=== PATIENT | female | born 1970 | race Caucasian/White ===

== ENCOUNTER 2016-11-26 09:24 | Emergency (ER) | payer OTHER ==
[~2016-11-26] VITALS: Ht 167.6 cm; Wt 120.0 kg
[~2016-11-26 09:24] MED LIST: FLUO40CA8 PO; HYDC25 PO; LISI10TA PO; RQP25 PO
[2016-11-26 09:30] VITALS: Ht 167.6 cm; Wt 120.0 kg
[2016-11-26] MEDS ORDERED: HYDR25TA4 PO (09:44)
[2016-11-26] MEDS ORDERED: MELO7.5T5 PO (09:46)
[2016-11-26] MEDS ORDERED: KETOROLAC TROMETHAMINE 60 MG/2 ML VIAL IM STA (09:58)
[2016-11-26] MEDS ORDERED: ONDANSETRON 4MG OD TAB PO STA (09:58)
[2016-11-26] MEDS ORDERED: HYDROmorphone INJ 2 MG/ML SYR/VIAL IM STA (09:58)
[2016-11-26] MEDS ORDERED: DEXAMETHASONE SOD INJ 10 MG/ML VIAL IM STA (09:58)
--- NOTE | 2016-11-26 10:04 | EMERGENCY ROOM VISIT NOTE ---
History Report prepared by Dong: Sonu Marsh Under the Supervision of: Dr. Kingston Mullen M.D. First contact with patient: 09:54 Chief Complaint: BACK PAIN Stated Complaint: BACK AND HIP History of Present Illness The patient is a 46 year old female who presents to the Emergency Room with complaints of worsening constant lower right back pain for the past three days. The patient states that she has a history of sciatica, and the pain is running down her right leg. The patient states that she takes 3000mg of Tylenol per day. Source of History: patient Onset: three days ago Position: back (lower) Timing: constant, worsening Note: Associated symptoms: Right leg pain Review of Systems See HPI for pertinent positives & negatives. A total of 10 systems reviewed and were otherwise negative. Past Medical & Surgical Medical Problems: (1) Abscess of left axilla (2) Abscess of left axilla (3) Acute exacerbation of chronic low back pain (4) Arthritis (5) Arthritis (6) Arthritis (7) Asthma (8) Back pain (9) Back pain (10) Cellulitis of right leg (11) COPD (chronic obstructive pulmonary disease) (12) Hip pain (13) Hip pain (14) Hip pain, bilateral (15) Hypertension Nos (16) Knee pain (17) Morbid Obesity (18) Right leg DVT (19) Wound check, abscess Surgical Problems: (1) Left Ankle Surgery Family History Cancer Diabetes mellitus Gallbladder disease Heart disease Hypertension Kidney disease Lung disease Social History Smoking Status: Never Smoker Alcohol Use: none Drug Use: none Marital Status: single Housing Status: lives with family Occupation Status: employed Current/Historical Medications Scheduled Fluoxetine Hcl (Prozac), 40 MG PO DAILY Hydrochlorothiazide (Hctz), 25 MG PO DAILY Lisinopril (Prinivil), 10 MG PO DAILY Meloxicam (Mobic), 7.5 MG PO DAILY Prednisone (Prednisone Tab), 0 PO DAILY Scheduled PRN Oxycodone/Acetaminophen 5MG/325MG (Percocet 5MG/325MG), 1-2 TAB PO Q4H PRN for Pain Ropinirole HCl (Ropinirole HCl), 0.5 MG PO HS PRN for PRN Allergies Uncoded Allergies: ADHESIVE (Allergy, Intermediate, skin peels off, 11/26/16) Physical Exam Vital Signs Date Time Temp Pulse Resp B/P Pulse Ox O2 Delivery O2 Flow Rate FiO2 11/26/16 11:46 62 20 143/52 98 Room Air 11/26/16 11:45 36.5 56 19 121/67 98 11/26/16 09:30 36.5 56 19 121/67 98 Room Air Physical Exam GENERAL: Patient is a healthy-appearing well-nourished HEAD: Normocephalic atraumatic EYES: Ocular movements intact pupils equal and react to light OROPHARYNX mucous membranes are moist no exudates present no erythema or edema present NECK: Supple no nuchal rigidity CHEST: Good equal expansion LUNGS: Clear and equal to auscultation CARDIAC: Normal S1 and S2 ABDOMEN: Soft nontender no guarding BACK: Tenderness to midline of the spine at the L4-L5 area. No CVA tenderness EXTREMITIES: No pain upon palpation normal muscle strength in all groups no clubbing cyanosis or edema NEURO: Able to walk on tip toes and heels. No evidence of saddle anesthesia. No loss of bowel or bladder control. Patient is following commands is answering questions appropriately. Alert and oriented x3 Cranial Nerves 2-12 grossly intact Medical Decision & Procedures Medications Administered Medications (Trade) Dose Ordered Sig/Ross Route Start Time Stop Time Status Last Admin Dose Admin Ketorolac Tromethamine (Toradol Inj) 60 mg NOW STAT IM 11/26/16 09:58 11/26/16 10:00 DC 11/26/16 10:29 60 MG Dexamethasone Sodium Phosphate (Decadron Inj) 10 mg NOW STAT IM 11/26/16 09:58 11/26/16 10:00 DC 11/26/16 10:30 10 MG Hydromorphone HCl (Dilaudid Inj) 2 mg NOW STAT IM 11/26/16 09:58 11/26/16 10:00 DC 11/26/16 10:29 2 MG Ondansetron HCl (Zofran Odt) 4 mg NOW STAT PO 11/26/16 09:58 11/26/16 10:00 DC 11/26/16 10:28 4 MG ED Course 0954: Past medical records reviewed. The patient was evaluated in room B3. A complete history and physical examination was performed. 0958: Zofran Odt 4mg PO, Dilaudid Inj 2mg IM, Decadron Inj 10mg IM, Toradol Inj 60mg IM 1113: Upon reexamination the patient is feeling better. I discussed results and treatment plan with the patient. She verbalizes agreement and understanding. The patient is ready for discharge. Medical Decision Differential diagnosis: Etiologies such as musculoskeletal, disc herniation, fracture, aortic disease, metastatic disease, cord compression, discitis, infection, renal colic, gastrointestinal, acute exacerbation of chronic back pain, sciatica, cauda equina, as well as others were entertained. This is a 46-year-old female who presents emergency department complaining of inflammation to her back. She presents during a period of high volume high acuity. When I tried to question the patient further about her condition she became agitated and stated that this is similar to her attacks in the past and that she did not need imaging. She asked me to look up her past medical history and is asking for a pain shot. For this reason she was given Decadron, Toradol, Dilaudid. Repeat examination revealed improvement patient's symptoms. I'll place the patient on prednisone and have her follow-up with orthopedic spine. Patient was in agreement with the treatment plan. Impression Primary Impression: Back pain with sciatica Scribe Attestation The scribe's documentation has been prepared under my direction and personally reviewed by me in its entirety. I confirm that the note above accurately reflects all work, treatment, procedures, and medical decision making performed by me. Departure Information Dispostion Home / Self-Care Prescriptions Prednisone (Prednisone Tab) 20 Mg Tab 0 PO DAILY, #7 TAB 2 TABS DAILY FOR 2 DAYS, THEN 1 TAB DAILY FOR 2 DAYS, THEN 1/2 TAB DAILY FOR 2 DAYS. Prov: Kingston Mullen MD 11/26/16 Oxycodone/Acetaminophen 5MG/325MG (PERCOCET 5MG/325MG) Tab 1-2 TAB PO Q4H Y for Pain, #14 TAB Prov: Kingston Mullen MD 11/26/16 Referrals No Doctor, Assigned (PCP) Forms HOME CARE DOCUMENTATION FORM, IMPORTANT VISIT INFORMATION, School Instructions, Work Instructions Patient Instructions ED Back Care Tips, ED Sciatica, Exercises Back Lower Back Stretch, Low Back Pain Self Care, My [facility] Additional Instructions Follow up with DR Us's office You received narcotic or benzodiazepene medication while in the emergency room today. Do not drive, operate heavy machinery, or drink alcohol under the influence of this medication. Take 600 mg Ibuprofen every 6 hours Take Percocet for breakthrough pain You have been examined and treated today on an emergency basis only. This is not a substitute for, or an effort to provide, complete comprehensive medical care. It is impossible to recognize and treat all injuries or illnesses in a single emergency department visit. It is therefore important that you follow up closely with Dr Collins. Call as soon as possible for an appointment. Thank you for your time and consideration. I look forward to speaking with you again soon. Please don't hesitate to call us if you have any questions.
[2016-11-26] MEDS ORDERED: PRED20TA2 PO (11:14)
[2016-11-26] MEDS ORDERED: OXYC-57 PO (11:14)
[2016-11-26 11:45] VITALS: TEMP 36.5
[2016-11-26 11:46] VITALS: BP 143/52; PULSE 62; O2SAT 98
== END 2016-11-26 11:46 | disposition home or self-care (01) ==
LOC: C.EDB 09:26
DX: M54.41 Lumbago with sciatica, right side (principal); I10 Essential (primary) hypertension; J44.9 Chronic obstructive pulmonary disease, unspecified; M19.90 Unspecified osteoarthritis, unspecified site; J45.909 Unspecified asthma, uncomplicated; Z86.718 Personal history of other venous thrombosis and embolism; Z86.19 Personal history of other infectious and parasitic diseases; Z98.890 Other specified postprocedural states; Z79.899 Other long term (current) drug therapy; Z91.09 Other allergy status, other than to drugs and biological substances; Z80.9 Family history of malignant neoplasm, unspecified; Z83.3 Family history of diabetes mellitus; Z83.79 Family history of other diseases of the digestive system; Z82.49 Family history of ischemic heart disease and other diseases of the circulatory system; Z84.1 Family history of disorders of kidney and ureter

== ENCOUNTER → 2017-01-26 | Outpatient (CLI) | payer OTHER ==
[~2017-01-26] MED LIST changes: +ACET325C PO; +BUPRTAB PO; +GABA-113 PO; -HYDC25 PO; +HYDR25TA4 PO; +IBUP-1050 PO; +KETO10TA PO; +MELO7.5T5 PO; +METH4PAK PO; +OXYC-57 PO; +PARO1TAB29 PO; +POTA20TA16 PO; +PRED20TA2 PO
[2017-01-26 14:24] LABS: BLOOD UREA NITROGEN 17 mg/dl (7-18); BUN/CREATININE RATIO 23.3 (10-20); CARBON DIOXIDE 25 mmol/L (21-32); CHLORIDE 106 mmol/L (98-107); CREATININE 0.73 mg/dl (0.60-1.20); GLUCOSE 83 mg/dl (70-99); POTASSIUM 3.9 mmol/L (3.5-5.1); SODIUM 141 mmol/L (136-145)
== END | disposition home or self-care (01) ==
LOC: C.LABBFT 08:31
PROVIDERS: ATTEND Physician Assistant Medical
DX: I10 Essential (primary) hypertension (principal)

== ENCOUNTER 2017-03-17 18:34 | Emergency (ER) | payer OTHER ==
[~2017-03-17] VITALS: Ht 167.6 cm; Wt 133.9 kg
[~2017-03-17 18:34] MED LIST changes: -ACET325C PO; -BUPRTAB PO; -GABA-113 PO; -IBUP-1050 PO; -KETO10TA PO; -METH4PAK PO; -PARO1TAB29 PO; -POTA20TA16 PO
[2017-03-17 18:52] VITALS: TEMP 36.7; Ht 167.6 cm; Wt 133.9 kg
--- NOTE | 2017-03-17 19:37 | EMERGENCY ROOM VISIT NOTE ---
History Report prepared by Dong: Jenise Massey Under the Supervision of: Dr. David Guerrier M.D. First contact with patient: 19:23 Chief Complaint: PAIN (GENERALIZED) Stated Complaint: HIP,KNEE,SHOULDER PAIN History of Present Illness The patient is a 46 year old female who presents to the Emergency Room with complaints of intermittent chest pain beginning 2 days ago. She reports the pain as being sharp and only lasting a couple of minutes. She also has a chief complaint of left hip pain beginning 5 days ago. The pain also radiates down her left posterior leg. She denies back pain and urinary symptoms. She has no history of GERD and is not diabetic. Source of History: patient Onset: 2 days ago Position: chest Quality: sharp Timing: intermittent Associated Symptoms: No back pain, No urinary symptoms Note: additional symptom: left hip pain Review of Systems See HPI for pertinent positives & negatives. A total of 10 systems reviewed and were otherwise negative. Past Medical & Surgical Medical Problems: (1) Abscess of left axilla (2) Abscess of left axilla (3) Acute exacerbation of chronic low back pain (4) Arthritis (5) Arthritis (6) Arthritis (7) Asthma (8) Back pain (9) Back pain (10) Cellulitis of right leg (11) COPD (chronic obstructive pulmonary disease) (12) Hip pain (13) Hip pain (14) Hip pain, bilateral (15) Hypertension (16) Hypertension Nos (17) Knee pain (18) Morbid Obesity (19) Right leg DVT (20) Wound check, abscess Surgical Problems: (1) Left Ankle Surgery Family History Cancer Diabetes mellitus Gallbladder disease Heart disease Hypertension Kidney disease Lung disease Social History Smoking Status: Current Every Day Smoker Alcohol Use: none Drug Use: none Marital Status: single Housing Status: lives with family Occupation Status: employed Current/Historical Medications Scheduled Bupropion Hcl (Wellbutrin Xl), Unknown Dose PO QAM Gabapentin (Neurontin), 300 MG PO TID Hydrochlorothiazide (Hctz), 25 MG PO DAILY Methylprednisolone (Medrol Dosepak), 1 PKT PO UD Paroxetine (Paxil), 1 TAB PO DAILY Potassium Ext Rel (Klor-Con), 20 MEQ PO DAILY Scheduled PRN Acetaminophen (Tylenol), 650 MG PO Q4H PRN for Pain Ibuprofen (Advil), 200-600 MG PO Q4H PRN for Pain Allergies Coded Allergies: Adhesives (Unverified Adverse Reaction, Intermediate, SKIN PEELS OFF, ) Uncoded Allergies: ADHESIVE (Allergy, Intermediate, skin peels off, 11/26/16) Physical Exam Vital Signs Date Time Temp Pulse Resp B/P (MAP) Pulse Ox O2 Delivery O2 Flow Rate FiO2 03/17/17 21:25 74 20 158/88 95 Room Air 03/17/17 19:23 74 03/17/17 18:52 36.7 81 17 137/81 97 Room Air Physical Exam GENERAL: Patient is well appearing and in minimal distress. HEENT: No acute trauma, normocephalic atraumatic, mucous membranes moist, no nasal congestion, no scleral icterus. NECK: No stridor, no adenopathy, no meningismus, trachea is midline. LUNGS: No dyspnea. Clear to auscultation and equal bilaterally. No wheeze, no rhonchi. HEART: Regular rate and rhythm. No murmurs, rubs, gallops appreciated. ABDOMEN: Soft, nontender, bowel sounds positive, no masses appreciated, no peritonitis. BACK: No midline tenderness, no CVA tenderness EXTREMITIES: Normal motion all extremities, no cyanosis, no edema. NEUROLOGIC: Alert and oriented, no acute motor or sensory deficits, no focal weakness, cranial nerves grossly intact. SKIN: No rash, no jaundice, no diaphoresis. Medical Decision & Procedures ER Provider Diagnostic Interpretation: X ray results are stated below per my interpretation and the radiologist's interpretation. SINGLE VIEW CHEST CLINICAL HISTORY: Atypical chest pain. FINDINGS: An AP, portable, upright chest radiograph is compared to study dated 08/03/2013. The examination is degraded by portable technique, large body habitus, and patient rotation. The cardiomediastinal silhouette is unremarkable. There is mild bibasilar atelectasis. The lungs and pleural spaces are otherwise clear. No pneumothorax is seen. The skeletal structures appear osteopenic. The bony thorax is grossly intact. IMPRESSION: No active disease in the chest. Electronically signed by: Jerrell Giles M.D. 03/17/2017 7:54 PM Dictated Date/Time: 03/17/2017 7:53 PM SINGLE VIEW PELVIS; 2 VIEWS LEFT HIP CLINICAL HISTORY: Left hip pain of 5 days' duration. No history of trauma. FINDINGS: An AP view of the pelvis with AP and frog-leg views of the left hip are compared to study dated 02/24/2016. The skeletal structures are osteopenic. No fracture is seen in the hips or bony pelvis. Minimal arthritic change is present in the hips. There is no significant joint space narrowing. Enthesophytes arise from the anterior superior iliac spine bilaterally and the greater trochanters of the proximal femora. Minimal sclerotic change is seen in the sacroiliac joints. Lumbosacral spondylosis is partially imaged. The overlying soft tissues are normal in appearance. There is a nonobstructed abdominal gas pattern. IMPRESSION: 1. No acute bony abnormality is identified in the hips or pelvis. 2. Osteopenia and minimal degenerative change as above. There has been no significant change from 02/24/2016. Electronically signed by: Jerrell Giles M.D. 03/17/2017 9:04 PM Dictated Date/Time: 03/17/2017 9:02 PM Laboratory Results 03/17/17 20:00 Red Blood Count 4.74, Mean Corpuscular Volume 84.8, Mean Corpuscular Hemoglobin 26.6, Mean Corpuscular Hemoglobin Concent 31.3, Mean Platelet Volume 9.7, Neutrophils (%) (Auto) 66.9, Lymphocytes (%) (Auto) 22.3, Monocytes (%) (Auto) 7.6, Eosinophils (%) (Auto) 2.3, Basophils (%) (Auto) 0.4, Neutrophils # (Auto) 5.49, Lymphocytes # (Auto) 1.83, Monocytes # (Auto) 0.62, Eosinophils # (Auto) 0.19, Basophils # (Auto) 0.03 03/17/17 20:00 Test 03/17/17 20:00 White Blood Count 8.20 K/uL (4.8-10.8) Red Blood Count 4.74 M/uL (4.2-5.4) Hemoglobin 12.6 g/dL (12.0-16.0) Hematocrit 40.2 % (37-47) Mean Corpuscular Volume 84.8 fL (80-100) Mean Corpuscular Hemoglobin 26.6 pg (25-34) Mean Corpuscular Hemoglobin Concent 31.3 g/dl (32-36) Platelet Count 384 K/uL (130-400) Mean Platelet Volume 9.7 fL (7.4-10.4) Neutrophils (%) (Auto) 66.9 % Lymphocytes (%) (Auto) 22.3 % Monocytes (%) (Auto) 7.6 % Eosinophils (%) (Auto) 2.3 % Basophils (%) (Auto) 0.4 % Neutrophils # (Auto) 5.49 K/uL (1.4-6.5) Lymphocytes # (Auto) 1.83 K/uL (1.2-3.4) Monocytes # (Auto) 0.62 K/uL (0.11-0.59) Eosinophils # (Auto) 0.19 K/uL (0-0.5) Basophils # (Auto) 0.03 K/uL (0-0.2) RDW Standard Deviation 47.7 fL (36.4-46.3) RDW Coefficient of Variation 15.4 % (11.5-14.5) Immature Granulocyte % (Auto) 0.5 % Immature Granulocyte # (Auto) 0.04 K/uL (0.00-0.02) Anion Gap 8.0 mmol/L (3-11) Est Creatinine Clear Calc Drug Dose 97.8 ml/min Estimated GFR () 78.1 Estimated GFR (Non- 67.4 BUN/Creatinine Ratio 22.9 (10-20) Calcium Level 8.7 mg/dl (8.5-10.1) Troponin I < 0.015 ng/ml (0-0.045) Laboratory results as reviewed by me. Medications Administered Medications (Trade) Dose Ordered Sig/Ross Route Start Time Stop Time Status Last Admin Dose Admin Prednisone (PredniSONE TAB) 40 mg NOW STAT PO 03/17/17 21:14 03/17/17 21:15 DC 03/17/17 21:34 40 MG Potassium Chloride (Klor-Con Tab) 40 meq NOW STAT PO 03/17/17 21:29 03/17/17 21:30 DC 03/17/17 21:29 40 MEQ ECG Indication: chest pain Rate (beats per minute): 72 Rhythm: normal sinus Findings: no acute ischemic change, no ectopy ED Course 1924: The patient was evaluated in room A3. A complete history and physical exam was performed. 2108: I reevaluated the patient and she feels fine. I discussed the risks of taking too much Ibuprofen especially combined with a steroid. She is agreeable to trying oral steroids and will follow closely with her doctor about chest discomfort and persistent hip pain. 2113: Ordered Prednisone 40 mg PO. 2138: Ordered Potassium Chloride 40 meq PO. Reevaluated the patient. Discussed results and discharge instructions: she verbalized understanding and agreement. The patient is ready for discharge. Medical Decision Pleasant 46 yr old female with left hip pain for last few days. Taking far too much ibuprofen and I have made it clear she is accidentally overdosing on this and could cause stomach bleeding or renal failure. Hip without rash swelling nor other acute findings. Suspect this is sciatic in nature though may be primary arthritic in nature. No evidence of vascular cause. She is stable. Will try some steroids and stress stop/heavily cut back ibuprofen. Discussed GERD issues/risks with all of this. Did note some periodic atypical chest pain over last 2 days. EKG and Trop are negative for ACS. May be GERD already and discussed OTC Meds. We reviewed limitations to cardiac eval in ED and that if worsening symptoms or other concerns RTED immediately for further evaluation. History of leg swelling and notes just started taking lasix again, which would explain hypokalemia. Will plan on Klor-Con. Patient aware of HTN. Stressed need to follow up with PCP about all of these issues as soon as possible. Impression Primary Impression: Left hip pain Additional Impressions: Intermittent chest pain Hypokalemia Scribe Attestation The scribe's documentation has been prepared under my direction and personally reviewed by me in its entirety. I confirm that the note above accurately reflects all work, treatment, procedures, and medical decision making performed by me. Departure Information Dispostion Home / Self-Care Prescriptions Potassium Ext Rel (Klor-Con) 20 Meq Tabcr 20 MEQ PO DAILY for 30 Days, #30 TAB Prov: David Guerrier M.D. 03/17/17 Methylprednisolone (MEDROL DOSEPAK) 4 Mg Lee 1 PKT PO UD for 6 Days, #1 PKT Prov: David Guerrier M.D. 03/17/17 Referrals No Doctor, Assigned (PCP) Patient Instructions ED Sciatica, My [facility] Additional Instructions It is very important that you follow up with your PCP as soon as possible to discuss your symptoms. Return immediately if worsening chest pain, difficulty breathing, passing out or other concerns. Your potassium is low and will need to be rechecked in 1 week. Problem Qualifiers
--- NOTE | 2017-03-17 19:55 | DIAGNOSTIC IMAGING REPORT ---
SINGLE VIEW CHEST CLINICAL HISTORY: Atypical chest pain. FINDINGS: An AP, portable, upright chest radiograph is compared to study dated 08/03/2013. The examination is degraded by portable technique, large body habitus, and patient rotation. The cardiomediastinal silhouette is unremarkable. There is mild bibasilar atelectasis. The lungs and pleural spaces are otherwise clear. No pneumothorax is seen. The skeletal structures appear osteopenic. The bony thorax is grossly intact. IMPRESSION: No active disease in the chest. Electronically signed by: Jerrell Giles M.D. 03/17/2017 7:54 PM Dictated Date/Time: 03/17/2017 7:53 PM
[2017-03-17 20:14] LABS: BASO % 0.4 %; BASO ABS # 0.03 K/uL (0-0.2); COMPLETE YES; EOS % 2.3 %; HEMATOCRIT 40.2 % (37-47); IG% 0.5 %; LYMPH % 22.3 %; LYMPH ABS # 1.83 K/uL (1.2-3.4); MEAN CELL VOLUME 84.8 fL (80-100); MEAN CORPUSCULAR HEMOGLOBIN 26.6 pg (25-34); MEAN CORPUSCULAR HGB CONC 31.3 g/dl (32-36); MEAN PLATELET VOLUME 9.7 fL (7.4-10.4); MONO % 7.6 %; NEUT % 66.9 %; PLATELET COUNT 384 K/uL (130-400); RED BLOOD COUNT 4.74 M/uL (4.2-5.4)
[2017-03-17] MEDS ORDERED: PARO1TAB29 PO (20:24)
[2017-03-17] MEDS ORDERED: GABA-113 PO (20:24)
[2017-03-17] MEDS ORDERED: BUPRTAB PO (20:24)
[2017-03-17] MEDS ORDERED: IBUP-1050 PO (20:27)
[2017-03-17] MEDS ORDERED: ACET325C PO (20:27)
[2017-03-17 20:32] LABS: BLOOD UREA NITROGEN 23 mg/dl (7-18); BUN/CREATININE RATIO 22.9 (10-20); CALCIUM 8.7 mg/dl (8.5-10.1); CARBON DIOXIDE 33 mmol/L (21-32); CHLORIDE 100 mmol/L (98-107); CREATININE 0.99 mg/dl (0.60-1.20); GLUCOSE 88 mg/dl (70-99); POTASSIUM 2.6 mmol/L (3.5-5.1); SODIUM 141 mmol/L (136-145)
--- NOTE | 2017-03-17 21:05 | DIAGNOSTIC IMAGING REPORT ---
SINGLE VIEW PELVIS; 2 VIEWS LEFT HIP CLINICAL HISTORY: Left hip pain of 5 days' duration. No history of trauma. FINDINGS: An AP view of the pelvis with AP and frog-leg views of the left hip are compared to study dated 02/24/2016. The skeletal structures are osteopenic. No fracture is seen in the hips or bony pelvis. Minimal arthritic change is present in the hips. There is no significant joint space narrowing. Enthesophytes arise from the anterior superior iliac spine bilaterally and the greater trochanters of the proximal femora. Minimal sclerotic change is seen in the sacroiliac joints. Lumbosacral spondylosis is partially imaged. The overlying soft tissues are normal in appearance. There is a nonobstructed abdominal gas pattern. IMPRESSION: 1. No acute bony abnormality is identified in the hips or pelvis. 2. Osteopenia and minimal degenerative change as above. There has been no significant change from 02/24/2016. Electronically signed by: Jererll Giles M.D. 03/17/2017 9:04 PM Dictated Date/Time: 03/17/2017 9:02 PM
[2017-03-17 21:25] VITALS: BP 158/88; PULSE 74; O2SAT 95
[2017-03-17] MEDS ORDERED: POTA20TA16 PO (21:28)
[2017-03-17] MEDS ORDERED: METH4PAK PO (21:28)
[2017-03-17] MEDS ORDERED: POTASSIUM CHLORIDE 20 MEQ TABCR PO STA (21:29)
== END 2017-03-17 22:00 | disposition home or self-care (01) ==
LOC: C.EDB 18:36 → C.EDA 22:00
DX: M25.552 Pain in left hip (principal); R07.9 Chest pain, unspecified; E87.6 Hypokalemia; M19.90 Unspecified osteoarthritis, unspecified site; J45.909 Unspecified asthma, uncomplicated; J44.9 Chronic obstructive pulmonary disease, unspecified; I10 Essential (primary) hypertension; E66.01 Morbid (severe) obesity due to excess calories; Z83.3 Family history of diabetes mellitus; Z82.49 Family history of ischemic heart disease and other diseases of the circulatory system; F17.200 Nicotine dependence, unspecified, uncomplicated

== ENCOUNTER 2017-03-30 18:29 | Emergency (ER) | payer OTHER ==
[~2017-03-30] VITALS: Ht 167.6 cm; Wt 146.0 kg
[~2017-03-30 18:29] MED LIST changes: +ACET325C PO; +BUPRTAB PO; -FLUO40CA8 PO; +GABA-113 PO; +IBUP-1050 PO; -LISI10TA PO; -MELO7.5T5 PO; -OXYC-57 PO; +PARO1TAB29 PO; +POTA20TA16 PO; -PRED20TA2 PO; -RQP25 PO
[2017-03-30 18:32] VITALS: TEMP 36.7; Ht 167.6 cm; Wt 146.0 kg
[2017-03-30] MEDS ORDERED: KETOROLAC TROMETHAMINE 60 MG/2 ML VIAL IM STA (18:49)
[2017-03-30] MEDS ORDERED: KETO10TA PO (19:00)
--- NOTE | 2017-03-30 19:02 | EMERGENCY ROOM VISIT NOTE ---
History Report prepared by Dong: Mike Altman Under the Supervision of: Melchor GuevaraO. First contact with patient: 18:42 Chief Complaint: HIP PAIN Stated Complaint: R HIP PAIN History of Present Illness The patient is a 46 year old female who presents to the Emergency Room with complaints of persistent right hip pain that started today. The pain is worse with movement. The patient has not taken anything for the pain. The patient denies any injury and is not sure what caused the pain. The patient has had hip pain before. She denies fevers or chills. She has not noticed any rashes. Source of History: patient Onset: today Position: other (right hip) Timing: other (persistent) Modifying Factors (Worsening): movement Associated Symptoms: No fevers, No chills, No rash Review of Systems See HPI for pertinent positives & negatives. A total of 10 systems reviewed and were otherwise negative. Past Medical & Surgical Medical Problems: (1) Abscess of left axilla (2) Abscess of left axilla (3) Acute exacerbation of chronic low back pain (4) Arthritis (5) Arthritis (6) Arthritis (7) Asthma (8) Back pain (9) Back pain (10) Cellulitis of right leg (11) COPD (chronic obstructive pulmonary disease) (12) Hip pain (13) Hip pain (14) Hip pain, bilateral (15) Hypertension (16) Hypertension Nos (17) Knee pain (18) Morbid Obesity (19) Right leg DVT (20) Wound check, abscess Surgical Problems: (1) Left Ankle Surgery Family History Cancer Diabetes mellitus Gallbladder disease Heart disease Hypertension Kidney disease Lung disease Social History Smoking Status: Current Every Day Smoker Alcohol Use: none Drug Use: none Marital Status: single Housing Status: lives with family Occupation Status: employed Current/Historical Medications Scheduled Bupropion Hcl (Wellbutrin Xl), Unknown Dose PO QAM Gabapentin (Neurontin), 300 MG PO TID Hydrochlorothiazide (Hctz), 25 MG PO DAILY Paroxetine (Paxil), 1 TAB PO DAILY Potassium Ext Rel (Klor-Con), 20 MEQ PO DAILY Scheduled PRN Acetaminophen (Tylenol), 650 MG PO Q4H PRN for Pain Ibuprofen (Advil), 200-600 MG PO Q4H PRN for Pain Allergies Coded Allergies: Adhesives (Unverified Adverse Reaction, Intermediate, SKIN PEELS OFF, ) Uncoded Allergies: ADHESIVE (Allergy, Intermediate, skin peels off, 11/26/16) Physical Exam Vital Signs Date Time Temp Pulse Resp B/P (MAP) Pulse Ox O2 Delivery O2 Flow Rate FiO2 03/30/17 18:32 36.7 76 18 154/86 98 Room Air Physical Exam CONSTITUTIONAL/VITAL SIGNS: Reviewed / noted above. GENERAL: Non-toxic in appearance. INTEGUMENTARY: Warm, dry, and [place]. HEAD: Normocephalic. EYES: without scleral icterus or trauma. ENT/OROPHARYNX: clear and moist. LYMPHADENOPATHY/NECK: Is supple without lymphadenopathy or meningismus. RESPIRATORY: Lungs clear and equal. CARDIOVASCULAR: Regular rate and rhythm. GI/ABDOMEN: Soft and nontender. No organomegaly or pulsatile mass. No rebound or guarding. Normal bowel sounds. EXTREMITIES: Warm and well perfused. BACK: No CVA tenderness. NEUROLOGICAL: Intact without focal deficits. PSYCHIATRIC: normal affect. MUSCULOSKELETAL: Normally developed with good muscle tone. Mild discomfort with movement of the right hip, normal distal pulses, no sensorimotor deficit, no edema. Medical Decision & Procedures ED Course 1844: Previous medical records were reviewed. The patient was evaluated in room B11b. A complete history and physical examination was performed. 1899: Discussed the discharge instructions with her. She verbalized understanding and agreement. The patient is ready for discharge. Medical Decision Differential diagnosis: Etiologies such as fracture, dislocation, neurovascular compromise, compartment syndrome, soft tissue injury, as well as others were entertained. Patient was found to have a slightly elevated blood pressure due to circumstances. I do not believe that the patient requires hypertension monitoring. Medication Reconciliation: I attest that I have personally reviewed the patient' s current medication list. This is a 46-year-old female who presents to the ED with a chief complaint of right hip pain. The patient states that her symptoms started today. She denies any injuries. She was seen here a couple weeks ago with left hip pain. At that time she had an x-ray of her pelvis did not show any abnormalities to this leg. The patient has some increased pain with movement. Her exam did not reveal any rashes or increased warmth or erythema to the area. Distally she is neurovascularly intact without edema or calf tenderness. The patient was felt to have a musculoskeletal pain. She is given Toradol IM here. She will be discharged on Ultram. Impression Primary Impression: Right hip pain Scribe Attestation The scribe's documentation has been prepared under my direction and personally reviewed by me in its entirety. I confirm that the note above accurately reflects all work, treatment, procedures, and medical decision making performed by me. Departure Information Dispostion Home / Self-Care Prescriptions Ketorolac (Toradol) 10 Mg Tab 10 MG PO QID Y for Pain for 5 Days, #20 TAB Prov: Kingston Lopez D.O. 03/30/17 Referrals Yves Collins M.D. (PCP) Patient Instructions My [facility] Additional Instructions Toradol as prescribed for pain. Follow-up with your doctor for further care and evaluation in 1-8 days if symptoms persist. Return to the emergency department for worsening or new symptoms or any concerns. You have been examined and treated today on an emergency basis only. This is not a substitute for, or an effort to provide, complete comprehensive medical care. It is impossible to recognize and treat all injuries or illnesses in a single emergency department visit. It is therefore important that you follow up closely with your doctor. Call as soon as possible for an appointment.
[2017-03-30 19:34] VITALS: BP 106/64; PULSE 66; O2SAT 97
== END 2017-03-30 19:36 | disposition home or self-care (01) ==
LOC: C.EDB 18:31
DX: M25.551 Pain in right hip (principal); M19.90 Unspecified osteoarthritis, unspecified site; J45.909 Unspecified asthma, uncomplicated; I10 Essential (primary) hypertension; Z86.718 Personal history of other venous thrombosis and embolism; E66.01 Morbid (severe) obesity due to excess calories; Z68.43 Body mass index [BMI] 50.0-59.9, adult; Z80.9 Family history of malignant neoplasm, unspecified; Z83.3 Family history of diabetes mellitus; Z82.49 Family history of ischemic heart disease and other diseases of the circulatory system; Z84.1 Family history of disorders of kidney and ureter; F17.210 Nicotine dependence, cigarettes, uncomplicated; Z79.899 Other long term (current) drug therapy

== ENCOUNTER → 2017-11-11 | Outpatient (CLI) | payer OTHER ==
[~2017-11-11] MED LIST changes: -POTA20TA16 PO
[2017-11-11 18:01] LABS: BASO % 0.5 %; BASO ABS # 0.05 K/uL (0-0.2); EOS % 2.1 %; HEMATOCRIT 38.9 % (37-47); HEMOGLOBIN 12.4 g/dL (12.0-16.0); IG# 0.03 K/uL (0.00-0.02); LYMPH % 17.6 %; LYMPH ABS # 1.64 K/uL (1.2-3.4); MEAN CELL VOLUME 83.8 fL (80-100); MEAN CORPUSCULAR HEMOGLOBIN 26.7 pg (25-34); MEAN CORPUSCULAR HGB CONC 31.9 g/dl (32-36); MEAN PLATELET VOLUME 10.4 fL (7.4-10.4); MONO % 6.9 %; MONO ABS # 0.64 K/uL (0.11-0.59); NEUT % 72.6 %; NEUT ABS # 6.77 K/uL (1.4-6.5); PLATELET COUNT 394 K/uL (130-400); RED CELL DISTRIBUTION WIDTH CV 17.9 % (11.5-14.5); RED CELL DISTRIBUTION WIDTH SD 54.9 fL (36.4-46.3); WHITE BLOOD COUNT 9.33 K/uL (4.8-10.8)
[2017-11-11 18:15] LABS: ALBUMIN 3.5 gm/dl (3.4-5.0); ALT/SGPT 19 U/L (12-78); AST/SGOT 14 U/L (15-37); BLOOD UREA NITROGEN 15 mg/dl (7-18); CALCIUM 9.5 mg/dl (8.5-10.1); CARBON DIOXIDE 30 mmol/L (21-32); CHOLESTEROL 156 mg/dl (0-200); CREATININE 0.89 mg/dl (0.60-1.20); GLUCOSE 77 mg/dl (70-99); POTASSIUM 3.9 mmol/L (3.5-5.1); SODIUM 135 mmol/L (136-145)
[2017-11-11 18:26] LABS: ALKALINE PHOSPHATASE 108 U/L (45-117); LDL CHOLESTEROL CALCULATED 85 mg/dl; TOTAL PROTEIN 7.3 gm/dl (6.4-8.2)
== END | disposition home or self-care (01) ==
LOC: C.LABBFT 15:21
PROVIDERS: ATTEND Nurse Practitioner
DX: I10 Essential (primary) hypertension (principal); R63.5 Abnormal weight gain

== ENCOUNTER 2017-12-26 13:35 | Emergency (ER) | payer OTHER ==
[~2017-12-26] VITALS: Ht 167.6 cm; Wt 152.0 kg
[2017-12-26 13:37] VITALS: TEMP 36.4; Ht 167.6 cm; Wt 152.0 kg
[2017-12-26] MEDS ORDERED: FENTANYL CITRATE INJ 50 MCG/1 ML 2 ML VIAL IV STA (13:52)
[2017-12-26] MEDS ORDERED: ONDANSETRON INJ 2 MG/ML 2 ML VIAL IV STA (13:52)
--- NOTE | 2017-12-26 14:20 | EMERGENCY ROOM VISIT NOTE ---
ED Visit Note First contact with patient: 13:44 CHIEF COMPLAINT: Right upper quadrant abdominal pain. HISTORY OF PRESENTING ILLNESS: This is a 47-year-old female who presents to the emergency department with complaint of right upper quadrant abdominal pain that started approximately 9 days ago. She reports a history of ongoing right upper quadrant pain that she attributes to her gallbladder that she has had for 18 years. She states that she has had evaluations of her gallbladder with ultrasound in the past and was told everything was normal. She states that her pain has never been this severe in the past. She states that the pain is constant starts in her right upper quadrant and radiates into her right upper back/shoulder, is worse with eating, currently rates as 7/10. She has not tried any medications for the pain. She reports associated nausea, diarrhea, and chills, but denies any fevers, vomiting, blood in the stool, urinary symptoms. She does report a history of stomach ulcers in the past, but states that she does not take any medications for this. She states that she does avoid NSAIDs because of the ulcers. She reports that she has never seen a GI specialist or surgeon regarding her right upper quadrant pain. She is a smoker , reports chronic cough and some shortness of breath associated with this at baseline. She denies any chest pain, worsening shortness of breath, dizziness or syncope, hemoptysis, headaches, vision changes, back pain, constipation. She states that her periods have been sporadic, last menstrual period was over 2 months ago. REVIEW OF SYSTEMS: A complete 10 point review of systems was reviewed with the patient with pertinent positives and negatives as per history of present illness. All else were negative. PAST MEDICAL HISTORY: Reviewed in chart. SOCIAL HISTORY: Lives at home. Current everyday smoker, denies any alcohol or recreational drugs. ALLERGIES: No known drug allergies. PHYSICAL EXAM: CONSTITUTIONAL: Pleasant and cooperative. No acute distress. Obese. Well appearing and well nourished. HEENT: Normocephalic, atraumatic. Pupils equal, round and reactive to light, EOMI. TMs normal. Pharynx normal. NECK: Supple, full active range of motion without discomfort. RESPIRATORY: Clear to auscultation bilaterally with no wheezing, crackles, rhonchi or stridor. Equal expansion bilaterally. CARDIOVASCULAR: Regular rate and rhythm with no murmurs, rubs or gallops. Normal peripheral perfusion. No edema. GASTROINTESTINAL: Soft, obese abdomen, nondistended. Moderately tender in the right upper quadrant with guarding and positive Norman sign. No rebound tenderness. The abdomen is otherwise nontender. No palpable masses or HSM. Bowel sounds present in all quadrants. No CVA tenderness. MUSCULOSKELETAL: Full range of motion of all joints without discomfort. INTEGUMENTARY: No rash or other significant dermatologic conditions noted. NEUROLOGIC: Alert and oriented X 4 with normal affect. Normal strength and sensation all 4 extremities. No focal neurologic deficits noted. Normal speech. Normal gait observed. ED COURSE AND MEDICAL DECISION MAKING: CC: Patient presenting with complaint of right upper quadrant pain DIFFERENTIAL DIAGNOSIS: Includes, but not limited to gastritis, peptic ulcer disease, gastroenteritis, cholecystitis, cholelithiasis, pancreatitis, acute coronary syndrome, among others. INTERPRETATION OF LABS: No leukocytosis, mild anemia (not significantly changed from baseline), no significant electrolyte abnormalities, normal renal function , normal liver enzymes and lipase. Troponin negative. UA is negative for infection, negative urine . IMAGING: CHEST 2 VIEWS ROUTINE CLINICAL HISTORY: ABDOMINAL PAIN/GI pain COMPARISON STUDY: 03/17/2017 FINDINGS: The bones soft tissues and hemidiaphragms are normal. The cardiomediastinal silhouette is normal. The lungs are clear. The pulmonary vasculature is normal. IMPRESSION: Negative chest. ----- GALLBLADDER-ABD LIMITED CLINICAL HISTORY: ABDOMINAL PAIN/GI pain. Nausea. TECHNIQUE: Ultrasound COMPARISON STUDY: 10/18/2007 FINDINGS: Negative gallbladder. No shadowing gallstones. Common bile duct 9 mm. Fatty infiltration of liver. Pancreas is unremarkable. Right kidney is negative for hydronephrosis. IMPRESSION: Mild increase in diameter of the common bile duct from 5 to 9 mm. Fatty infiltration of liver. Otherwise negative study. EKG: Shows normal sinus rhythm with a rate of 76 bpm, no acute ischemic changes , and no significant changes when compared to previous EKG from 03/17/2017 by my interpretation. MEDICATION RECONCILIATION: I attest that I have personally reviewed the patient 's current medication list. INITIAL VITAL SIGNS REVIEW: I reviewed the patient's initial vital signs and interpret them as follows: T: Afebrile; BP: Hypertensive; HR: Within normal limits; RR: Within normal limits; Pulse Ox: Within normal limits on room air. Blood pressure screening: The patient was found to have an elevated blood pressure, which was felt to be situational. SUMMARY: Patient was evaluated at bedside, history and physical exam performed. Patient is alert and oriented, no acute distress, resting, in the stretcher. Patient does have moderate tenderness in the right upper quadrant with positive Norman sign and some guarding. Review of the patient's chart was performed, noting previous gallbladder imaging most recently done about 10 years ago, reporting stable hemangioma, but no other gallbladder disease at that time. Orders were placed at bedside for labs, UA and urine , EKG, chest x-ray , and troponin to rule out ACS, IV fentanyl for pain, IV Zofran for nausea, right upper quadrant ultrasound to evaluate for gallbladder disease. Patient discussed with Dr. Hernandez, who agrees with my assessment and plan. Labs and imaging reviewed as above, unremarkable, no evidence of acute cholecystitis or other significant gallbladder disease. EKG and troponin are negative and setting of over a week of constant epigastric pain, I do not suspect ACS at this time. Given the patient's history of GERD and peptic ulcer disease, I suspect her symptoms could be coming from this. I did give her a GI cocktail, which she states improved her symptoms. Patient reassessed multiple times throughout ED stay, she remained stable and is overall improved and feeling better. She is tolerating oral fluids without difficulty. Patient was updated on all results and plan for discharge, she was encouraged to follow closely with her primary care provider. She was also provided with referral information for bean sorter, and was encouraged to follow-up with them regarding her abdominal pain. She may benefit from another endoscopy in the future. The patient was provided with Rx for ranitidine and instructed to start taking this to help manage her symptoms. Patient was also given strict return precautions should her symptoms worsen, she verbalized understanding. Patient was discharged home in stable condition and ambulatory. Problem List Medical Problems: (1) Abscess of left axilla Status: Resolved (2) Abscess of left axilla Status: Resolved (3) Acute exacerbation of chronic low back pain Status: Resolved (4) Arthritis Status: Chronic (5) Arthritis Status: Resolved (6) Arthritis Status: Resolved (7) Asthma Status: Chronic (8) Back pain Status: Chronic (9) Back pain Status: Resolved (10) Cellulitis of right leg Status: Resolved (11) COPD (chronic obstructive pulmonary disease) Status: Chronic (12) Hip pain Status: Resolved (13) Hip pain Status: Resolved (14) Hip pain, bilateral Status: Resolved (15) Hypertension Nos Status: Chronic (16) Knee pain Status: Resolved (17) Morbid Obesity Status: Chronic (18) Right leg DVT Status: Resolved (19) Wound check, abscess Status: Resolved Surgical Problems: (1) Left Ankle Surgery Status: Resolved Current/Historical Medications Scheduled Gabapentin (Gabapentin), 400 MG PO QAM Hydrochlorothiazide (Hctz), 25 MG PO DAILY Paroxetine (Paxil), 1 TAB PO DAILY Ranitidine (Zantac), 1 TAB PO BID Allergies Coded Allergies: Adhesives (Unverified Adverse Reaction, Intermediate, SKIN PEELS OFF, 12/26) Uncoded Allergies: ADHESIVE (Allergy, Intermediate, skin peels off, 11/26/16) Vital Signs Date Time Temp Pulse Resp B/P (MAP) Pulse Ox O2 Delivery O2 Flow Rate FiO2 12/26/17 16:01 66 20 110/80 98 Room Air 12/26/17 14:26 75 12/26/17 13:37 36.4 86 18 150/79 98 Room Air Laboratory Results 12/26/17 14:15 Red Blood Count 4.43, Mean Corpuscular Volume 82.8, Mean Corpuscular Hemoglobin 26.4, Mean Corpuscular Hemoglobin Concent 31.9, Mean Platelet Volume 9.9, Neutrophils (%) (Auto) 77.9, Lymphocytes (%) (Auto) 13.3, Monocytes (%) (Auto) 6.3, Eosinophils (%) (Auto) 1.6, Basophils (%) (Auto) 0.4, Neutrophils # (Auto) 6.15, Lymphocytes # (Auto) 1.05, Monocytes # (Auto) 0.50, Eosinophils # (Auto) 0.13, Basophils # (Auto) 0.03 12/26/17 14:15 Test 12/26/17 14:05 12/26/17 14:15 Urine Color YELLOW Urine Appearance SL CLOUDY (CLEAR) Urine pH 6.5 (4.5-7.5) Urine Specific [place] 1.020 (1.000-1.030) Urine Protein TRACE (NEG) Urine Glucose (UA) NEG (NEG) Urine Ketones NEG (NEG) Urine Occult Blood NEG (NEG) Urine Nitrite NEG (NEG) Urine Bilirubin NEG (NEG) Urine Urobilinogen NEG (NEG) Urine Leukocyte Esterase NEG (NEG) Urine Test NEG (NEG) White Blood Count 7.90 K/uL (4.8-10.8) Red Blood Count 4.43 M/uL (4.2-5.4) Hemoglobin 11.7 g/dL (12.0-16.0) Hematocrit 36.7 % (37-47) Mean Corpuscular Volume 82.8 fL (80-100) Mean Corpuscular Hemoglobin 26.4 pg (25-34) Mean Corpuscular Hemoglobin Concent 31.9 g/dl (32-36) Platelet Count 342 K/uL (130-400) Mean Platelet Volume 9.9 fL (7.4-10.4) Neutrophils (%) (Auto) 77.9 % Lymphocytes (%) (Auto) 13.3 % Monocytes (%) (Auto) 6.3 % Eosinophils (%) (Auto) 1.6 % Basophils (%) (Auto) 0.4 % Neutrophils # (Auto) 6.15 K/uL (1.4-6.5) Lymphocytes # (Auto) 1.05 K/uL (1.2-3.4) Monocytes # (Auto) 0.50 K/uL (0.11-0.59) Eosinophils # (Auto) 0.13 K/uL (0-0.5) Basophils # (Auto) 0.03 K/uL (0-0.2) RDW Standard Deviation 54.3 fL (36.4-46.3) RDW Coefficient of Variation 17.7 % (11.5-14.5) Immature Granulocyte % (Auto) 0.5 % Immature Granulocyte # (Auto) 0.04 K/uL (0.00-0.02) Anion Gap 5.0 mmol/L (3-11) Est Creatinine Clear Calc Drug Dose 132.7 ml/min Estimated GFR () 103.5 Estimated GFR (Non- 89.3 BUN/Creatinine Ratio 19.1 (10-20) Calcium Level 8.7 mg/dl (8.5-10.1) Total Bilirubin 0.4 mg/dl (0.2-1) Direct Bilirubin 0.1 mg/dl (0-0.2) Aspartate Amino Transf (AST/SGOT) 18 U/L (15-37) Alanine Aminotransferase (ALT/SGPT) 26 U/L (12-78) Alkaline Phosphatase 119 U/L (45-117) Troponin I < 0.015 ng/ml (0-0.045) Total Protein 7.0 gm/dl (6.4-8.2) Albumin 3.3 gm/dl (3.4-5.0) Lipase 127 U/L (73-393) Medications Administered Medications (Trade) Dose Ordered Sig/Ross Route Start Time Stop Time Status Last Admin Dose Admin Ondansetron HCl (Zofran Inj) 4 mg NOW STAT IV 12/26/17 13:52 12/26/17 13:55 DC 12/26/17 14:29 4 MG Fentanyl Citrate (Fentanyl Inj) 100 mcg NOW STAT IV 12/26/17 13:52 12/26/17 13:55 DC 12/26/17 14:30 100 MCG Miscellaneous Medication (Gi Cocktail) 24 ml NOW STAT PO 12/26/17 16:17 12/26/17 16:19 DC 12/26/17 16:17 24 ML Departure Information Impression Primary Impression: Right upper quadrant abdominal pain Dispostion Home / Self-Care Condition GOOD Prescriptions Ranitidine (Zantac) 150 Mg Tab 1 TAB PO BID for 30 Days, #60 TAB 0 Refills Prov: Meagan Amaya CRNP 12/26/17 Referrals Yves Collins M.D. (PCP) Vanessa Whitehead, DO Patient Instructions ED Epigastric Pain [facility], [facility] Additional Instructions You have been treated in the Emergency Department your abdominal pain. Laboratory results and imaging studies have ruled out any emergent causes for your symptoms which would warrant admission or surgery. You have been prescribed ranitidine to be taken twice a day for your stomach pain. Take as prescribed. For pain control, you can use the following [id number] medicines (if >12 yo): - Regular strength (325mg/tab) Tylenol (acetaminophen) 2 tabs every 4-6 hours as needed. Do not exceed 10 tablets in a 24 hour period. Avoid taking more than 3000 mg of Tylenol per day. This includes any other sources of acetaminophen you may take on a regular basis. - You may take Tums or Maalox to help with pain associated with eating. Drink plenty of fluids to stay well hydrated. Please follow-up with your primary care provider in the next few days. You have also been provided with referral information for a bean sorter. Call for an appointment. Return to the emergency department for severe worsening abdominal or back pain, worsening nausea/vomiting, vomiting blood, blood in your stool or urine, fevers > 101.5, severe dizziness or passing out, or any other concerns. Work Instructions Return To Work: 2 days
[2017-12-26] MEDS ORDERED: NRN400 PO (14:23)
[2017-12-26 14:36] LABS: BASO % 0.4 %; BASO ABS # 0.03 K/uL (0-0.2); EOS % 1.6 %; EOS ABS # 0.13 K/uL (0-0.5); HEMATOCRIT 36.7 % (37-47); HEMOGLOBIN 11.7 g/dL (12.0-16.0); IG# 0.04 K/uL (0.00-0.02); LYMPH % 13.3 %; LYMPH ABS # 1.05 K/uL (1.2-3.4); MEAN CELL VOLUME 82.8 fL (80-100); MEAN CORPUSCULAR HEMOGLOBIN 26.4 pg (25-34); MEAN CORPUSCULAR HGB CONC 31.9 g/dl (32-36); MEAN PLATELET VOLUME 9.9 fL (7.4-10.4); MONO % 6.3 %; NEUT % 77.9 %; NEUT ABS # 6.15 K/uL (1.4-6.5); PLATELET COUNT 342 K/uL (130-400); RED CELL DISTRIBUTION WIDTH CV 17.7 % (11.5-14.5); RED CELL DISTRIBUTION WIDTH SD 54.3 fL (36.4-46.3)
[2017-12-26 14:53] LABS: ALBUMIN 3.3 gm/dl (3.4-5.0); ALT/SGPT 26 U/L (12-78); AST/SGOT 18 U/L (15-37); BLOOD UREA NITROGEN 15 mg/dl (7-18); CALCIUM 8.7 mg/dl (8.5-10.1); CARBON DIOXIDE 28 mmol/L (21-32); CREATININE 0.78 mg/dl (0.60-1.20); GLUCOSE 89 mg/dl (70-99); LIPASE 127 U/L (73-393); POTASSIUM 3.7 mmol/L (3.5-5.1); SODIUM 138 mmol/L (136-145)
[2017-12-26 14:58] LABS: ALKALINE PHOSPHATASE 119 U/L (45-117)
--- NOTE | 2017-12-26 15:11 | DIAGNOSTIC IMAGING REPORT ---
CHEST 2 VIEWS ROUTINE CLINICAL HISTORY: ABDOMINAL PAIN/GI pain COMPARISON STUDY: 03/17/2017 FINDINGS: The bones soft tissues and hemidiaphragms are normal. The cardiomediastinal silhouette is normal. The lungs are clear. The pulmonary vasculature is normal. IMPRESSION: Negative chest. The above report was generated using voice recognition software. It may contain grammatical, syntax or spelling errors. Electronically signed by: Lazaro Almonte M.D. 12/26/2017 3:10 PM Dictated Date/Time: 12/26/2017 3:10 PM
[2017-12-26 16:01] VITALS: BP 110/80; PULSE 66; O2SAT 98
--- NOTE | 2017-12-26 16:02 | DIAGNOSTIC IMAGING REPORT ---
GALLBLADDER-ABD LIMITED CLINICAL HISTORY: ABDOMINAL PAIN/GI pain. Nausea. TECHNIQUE: Ultrasound COMPARISON STUDY: 10/18/2007 FINDINGS: Negative gallbladder. No shadowing gallstones. Common bile duct 9 mm. Fatty infiltration of liver. Pancreas is unremarkable. Right kidney is negative for hydronephrosis. IMPRESSION: Mild increase in diameter of the common bile duct from 5 to 9 mm. Fatty infiltration of liver. Otherwise negative study. The above report was generated using voice recognition software. It may contain grammatical, syntax or spelling errors. Electronically signed by: Lazaro Almonte M.D. 12/26/2017 4:01 PM Dictated Date/Time: 12/26/2017 3:59 PM
[2017-12-26] MEDS ORDERED: GI COCKTAIL PO STA (16:17)
[2017-12-26] MEDS ORDERED: ALUMINUM/MAGNESIUM SUSP 30 ML UDC ONE (16:21)
[2017-12-26] MEDS ORDERED: LIDOCAINE HCL 2% VISC SOLN 20 ML UDC ONE (16:21)
[2017-12-26] MEDS ORDERED: RANI150T85 PO (16:22)
== END 2017-12-26 16:32 | disposition home or self-care (01) ==
LOC: C.EDB 13:36
DX: R10.11 Right upper quadrant pain (principal); F17.200 Nicotine dependence, unspecified, uncomplicated; J45.909 Unspecified asthma, uncomplicated; J44.9 Chronic obstructive pulmonary disease, unspecified; I10 Essential (primary) hypertension; E66.9 Obesity, unspecified

== ENCOUNTER 2019-08-29 15:01 | Inpatient (IN) ==
[2019-08-29] MEDS ORDERED: SODIUM CHLORIDE 0.9% 1000ML 1,000 ML IV ONE (18:05)
[2019-08-29] MEDS ORDERED: ONDANSETRON INJ 2 MG/ML 2 ML VIAL IV STA (18:05)
[2019-08-29] MEDS ORDERED: KETOROLAC TROMETHAMINE 15 MG/ML VIAL IV STA (18:05)
[2019-08-29] MEDS ORDERED: SODIUM CHLORIDE 0.9% 1000ML 2,000 ML IV ONE (18:09)
[2019-08-29] MEDS ORDERED: CEFEPIME 2,000 MG/20 ML VIAL IV STA (18:27)
--- NOTE | 2019-08-29 18:34 | Emergency Department Note ---
ED Provider Note CHIEF COMPLAINT: Fevers, right-sided abdominal pain, feeling ill HISTORY OF PRESENTING ILLNESS: This is a 48-year-old female with past medical h istory significant for hypertension, who presents to the emergency department by private vehicle with complaints of feeling generally tired and unwell. She has been having fevers and chills for the past 2 to 3 days, she reports a fever as high as 102.3 last night. She has also been having some low abdominal pain that radiates into her right side, this has been constant, she describes as a dull a harrison and occasional stabbing pains, and rates it as 7/10. She took Tylenol around noon today, she has not taken anything else for her symptoms. She has had associated nausea and vomiting with the pain today. She notes that she was seen in the emergency department 9 days ago and was diagnosed with a kidney infection, she states that she was treated with Bactrim and has 2 doses left of this. She states that her symptoms have not improved at all and she continues to feel like she is getting worse. She does have urinary frequency and urgency and has had some urge incontinence, stating that she cannot make it to the bathroom because she has to go so badly. She also notes that she has been fe eling lightheaded a lot today, but she denies passing out. She denies any headaches, neck pain or stiffness, chest pain, shortness of breath, palpitations, diarrhea or constipation, or unusual rash. REVIEW OF SYSTEMS: A complete 10 point review of systems was reviewed with the patient with pertinent positives and negatives as per history of present illness. All else were negative. PAST MEDICAL HISTORY: Hypertension SOCIAL HISTORY: Lives at home, she is a current everyday smoker ALLERGIES: Reviewed in the chart and with patient PHYSICAL EXAM: CONSTITUTIONAL: Pleasant and cooperative. Nontoxic-appearing and in no acute distress, but appears generally fatigued and appears to feel unwell. Moderately dehydrated. HEENT: Normocephalic, atraumatic. PERRL, EOMI. TMs normal. Pharynx normal. Dry mucous memories. NECK: Supple, full active range of motion without discomfort. No cervical stephan nopathy. RESPIRATORY: Clear to auscultation bilaterally with no wheezing, crackles, rhonchi or stridor. Equal expansion bilaterally. CARDIOVASCULAR: Regular rate and rhythm with no murmurs, rubs or gallops. Normal peripheral perfusion. No edema. GASTROINTESTINAL: Tender to palpation throughout the right side of the abdomen and suprapubic area, no rebound tenderness or guarding. Soft, nondistended, obese abdomen. No palpable masses or HSM. Bowel sounds present in all quadrants. Right-sided CVA tenderness to percussion. MUSCULOSKELETAL: Full range of motion of all joints without discomfort. INTEGUMENTARY: No rash or other significant dermatologic conditions noted. NEUROLOGIC: Alert and oriented X 4 with normal affect. Normal strength and sensation in all 4 extremities. Normal speech. Normal gait observed. ED COURSE AND MEDICAL DECISION MAKING: CC: Patient presenting with complaint of fevers, right-sided abdominal pain, feeling ill DIFFERENTIAL DIAGNOSIS: Includes, but not limited to UTI, pyelonephritis, ureteral stone, infected stone, appendicitis, cholecystitis, pneumonia, bacteremia/sepsis, dehydration, electrolyte abnormality, acute kidney injury, among others. INTERPRETATION OF LABS: No leukocytosis, no anemia, normal platelets, no significant electrolyte abnormalities, acutely elevated BUN and creatinine (significantly elevated from baseline), normal liver enzymes and lipase. Lactic acid is within normal limits. Urinalysis pending. IMAGING: CT abd pelvis wo con CLINICAL HISTORY: 48 years-old Female presenting with right flank, RUQ and RLQ pain. TECHNIQUE: Multidetector CT of the abdomen and pelvis was performed without the use of intravenous contrast. IV contrast: None. One or more dose lowering techniques were used consistent with the principles of ALARA (as low as reasonably achievable), including automatic exposure control, mA or kV adjustm ent to individual patient size, and/or use of iterative reconstruction. COMPARISON: 08/20/2018. CT DOSE (mGy.cm): The estimated cumulative dose is 1705.85 mGy.cm. FINDINGS: Python Programmer topogram: Unremarkable. Lung bases: Normal heart size. No pericardial or pleural effusion. Minimal dependent changes likely atelectasis. Liver: Normal morphology. Normal density. Biliary: No gross biliary ductal dilatation allowing for noncontrast technique. Gallbladder surgically absent. Pancreas: Normal noncontrast appearance. Spleen: Enlarged measuring 15.1 cm in maximal sagittal dimension. Splenule noted. Adrenal glands: Normal. Kidneys and ureters: Normal. No hydronephrosis. Bladder: Incompletely evaluated secondary to underdistention. Pelvic organs: Normal noncontrast appearance. Bowel: Normal appendix. No bowel obstruction. Peritoneal cavity: No free fluid or intraperitoneal gas. Lymph nodes: No gross lymphadenopathy allowing for noncontrast technique. Vasculature: Atherosclerosis of the normal caliber abdominal aorta. Abdominal wall: Normal. Musculoskeletal: Degenerative changes of the spine. IMPRESSION: 1. Splenomegaly. 2. Allowing for noncontrast technique, otherwise no acute intra-abdominal pathology. EKG: Shows normal sinus rhythm with a rate of 77 bpm, normal intervals, no ST or T wave abnormalities, no ectopy, the rate is decreased by 47 bpm, no other significant changes when compared to previous EKG from 08/20/2019 by my interpretation. MEDICATION RECONCILIATION: I attest that I have personally reviewed the patient's current medication list. INITIAL VITAL SIGNS REVIEW: I reviewed the patient's initial vital signs and interpret them as follows: T: Afebrile; BP: Hypotensive; HR: Mildly tachycardic; RR: Within normal limits; Pulse Ox: Within normal limits on room air. Blood pressure screening: The patient was found to have a low blood pressure initially, which was concerning for possible sepsis. MDM SUMMARY: Patient was evaluated at bedside, history and physical exam performed. Patient is alert and oriented, in no acute distress, but appears to feel unwell, resting in the stretcher. Patient has diffuse tenderness throughout the lower abdomen and into the right flank, no acute abdomen. Patient is afebrile here, but notes fevers as high as 102.3 at home. She is noted to be mildly tachycardic and is concerningly hypotensive with systolic blood pressures in the 70s. Sepsis work-up was initiated, lactic acid and blood cultures x2, 2 L normal saline fluid bolus were infused. Broad coverage was initiated with 2 g IV cefepime. The patient was closely monitored and she did have a good response in her blood pressure to the fluids. Tachycardia is also downtrending. Patient discussed with Dr. Watkins, who also evaluated the patient and agrees with my assessment, plan, and disposition. Labs and imaging reviewed as above, no leukocytosis or anemia. Lactic acid is within normal limits. There is acute kidney injury with creatinine of 2.22, increased from 0.90 from her most recent visit 9 days ago. Urinalysis is still pending. CT imaging of the abdomen/pelvis did not demonstrate any concerning findings for severe intra-abdominal infection. Patient reassessed multiple times throughout ED stay, she has remained normotensive after receiving IV fluids, and has not developed a fever in the ED. I spoke with Dr. Abdul, [facility], who agrees to evaluate the patient for admission. The patient was updated on all results and plan for admission, she verbalized understanding and was agreeable to this plan. The patient was stable at time of admission. CRITICAL CARE NOTE: I have personally spent greater than 35 minutes of critical care time in the direct management of this patient. This includes bedside care, interpretation of diagnostic studies, and testing, discussion with consultants, patient, and family members, and other required patient management activities. This 35 minutes is in excess of all separately billable procedures. The chart was completed utilizing [employer] Speech voice recognition software. Grammatical errors, random word insertions, pronoun errors, and incomplete sentences are an occasional consequence of this system due to software limitations, ambient noise, and hardware issues. Any formal questions or concerns about the content, text, or information contained within the body of this dictation should be directly addressed to the nurse practitioner for clarification. Impression & Plan Sepsis, Acute kidney failure, unspecified, Acute hypotension Past Med/Surg History Social History Current Living Situation Comment: Lives with her daughter. Feels Safe at Home: Yes Smoking Status: Current every day smoker Hx Alcohol Use: No Results & Data Vital Signs Vital Signs - 24 hr 08/29/19 15:22 08/29/19 18:07 08/29/19 18:23 Temperature 36.4 C L Temperature Source Oral Pulse Rate 106 H 77 Pulse Rate [Finger] Pulse Rate from SpO2 Sensor Respiratory Rate 18 15 Respiratory Effort / Characteristics Non-Labored Spontaneous Respiratory Depth Normal Blood Pressure 77/57 L 89/51 L Blood Pressure [Right Arm] Blood Pressure Mean 63 70 Blood Pressure Mean [Right Arm] Blood Pressure Position Sitting Pulse Oximetry 99 Oxygen Delivery Method Room Air Room Air Room Air Sepsis Recent Fever Within 48 Hours No Sepsis Action Taken by Nursing No Action Required 08/29/19 18:27 08/29/19 18:30 08/29/19 18:40 Temperature 36.9 C Temperature Source Oral Pulse Rate 79 77 77 Pulse Rate [Finger] 77 Pulse Rate from SpO2 Sensor 80 78 77 Respiratory Rate 25 H 21 21 Respiratory Effort / Characteristics Respiratory Depth Blood Pressure Blood Pressure [Right Arm] 74/40 L Blood Pressure Mean Blood Pressure Mean [Right Arm] 51 Blood Pressure Position Pulse Oximetry 97 97 95 Oxygen Delivery Method Room Air Room Air Room Air Sepsis Recent Fever Within 48 Hours Sepsis Action Taken by Nursing 08/29/19 18:42 08/29/19 18:44 08/29/19 18:50 Temperature Temperature Source Pulse Rate 79 78 78 Pulse Rate [Finger] Pulse Rate from SpO2 Sensor 79 79 78 Respiratory Rate 21 20 25 H Respiratory Effort / Characteristics Respiratory Depth Blood Pressure 74/40 L Blood Pressure [Right Arm] Blood Pressure Mean 59 56 Blood Pressure Mean [Right Arm] Blood Pressure Position Pulse Oximetry 98 97 96 Oxygen Delivery Method Room Air Room Air Room Air Sepsis Recent Fever Within 48 Hours Sepsis Action Taken by Nursing 08/29/19 19:00 08/29/19 19:10 08/29/19 19:20 Temperature Temperature Source Pulse Rate 76 78 73 Pulse Rate [Finger] Pulse Rate from SpO2 Sensor 76 Respiratory Rate 26 H 21 22 Respiratory Effort / Characteristics Respiratory Depth Blood Pressure Blood Pressure [Right Arm] Blood Pressure Mean Blood Pressure Mean [Right Arm] Blood Pressure Position Pulse Oximetry 97 Oxygen Delivery Method Room Air Room Air Room Air Sepsis Recent Fever Within 48 Hours Sepsis Action Taken by Nursing 08/29/19 19:30 08/29/19 19:31 08/29/19 19:40 Temperature Temperature Source Pulse Rate 77 74 88 Pulse Rate [Finger] Pulse Rate from SpO2 Sensor Respiratory Rate 19 23 30 H Respiratory Effort / Characteristics Respiratory Depth Blood Pressure 93/55 L Blood Pressure [Right Arm] Blood Pressure Mean 71 Blood Pressure Mean [Right Arm] Blood Pressure Position Pulse Oximetry Oxygen Delivery Method Room Air Room Air Room Air Sepsis Recent Fever Within 48 Hours Sepsis Action Taken by Nursing 08/29/19 19:50 08/29/19 20:11 08/29/19 20:20 Temperature Temperature Source Pulse Rate 73 73 73 Pulse Rate [Finger] Pulse Rate from SpO2 Sensor Respiratory Rate 24 22 29 H Respiratory Effort / Characteristics Respiratory Depth Blood Pressure Blood Pressure [Right Arm] Blood Pressure Mean Blood Pressure Mean [Right Arm] Blood Pressure Position Pulse Oximetry Oxygen Delivery Method Room Air Room Air Room Air Sepsis Recent Fever Within 48 Hours Sepsis Action Taken by Nursing 08/29/19 20:27 08/29/19 20:28 08/29/19 20:30 Temperature Temperature Source Pulse Rate 73 73 Pulse Rate [Finger] 70 Pulse Rate from SpO2 Sensor 73 73 Respiratory Rate 21 26 H 19 Respiratory Effort / Characteristics Respiratory Depth Blood Pressure 144/79 H 128/65 Blood Pressure [Right Arm] 144/79 H Blood Pressure Mean 106 93 Blood Pressure Mean [Right Arm] 100 Blood Pressure Position Pulse Oximetry 99 99 97 Oxygen Delivery Method Room Air Room Air Room Air Sepsis Recent Fever Within 48 Hours Sepsis Action Taken by Nursing 08/29/19 20:40 08/29/19 20:50 08/29/19 21:11 Temperature Temperature Source Pulse Rate 71 70 Pulse Rate [Finger] Pulse Rate from SpO2 Sensor 71 70 79 Respiratory Rate 15 25 H Respiratory Effort / Characteristics Respiratory Depth Blood Pressure Blood Pressure [Right Arm] Blood Pressure Mean Blood Pressure Mean [Right Arm] Blood Pressure Position Pulse Oximetry 98 98 98 Oxygen Delivery Method Room Air Room Air Room Air Sepsis Recent Fever Within 48 Hours Sepsis Action Taken by Nursing 08/29/19 21:20 08/29/19 21:30 08/29/19 21:31 Temperature Temperature Source Pulse Rate 74 72 72 Pulse Rate [Finger] Pulse Rate from SpO2 Sensor Respiratory Rate 25 H 18 19 Respiratory Effort / Characteristics Respiratory Depth Blood Pressure 92/64 L Blood Pressure [Right Arm] Blood Pressure Mean 72 Blood Pressure Mean [Right Arm] Blood Pressure Position Pulse Oximetry Oxygen Delivery Method Room Air Room Air Room Air Sepsis Recent Fever Within 48 Hours Sepsis Action Taken by Nursing 08/29/19 21:40 08/29/19 21:50 08/29/19 22:00 Temperature Temperature Source Pulse Rate 71 73 73 Pulse Rate [Finger] Pulse Rate from SpO2 Sensor 74 Respiratory Rate 22 21 36 H Respiratory Effort / Characteristics Respiratory Depth Blood Pressure Blood Pressure [Right Arm] Blood Pressure Mean Blood Pressure Mean [Right Arm] Blood Pressure Position Pulse Oximetry 96 Oxygen Delivery Method Room Air Room Air Room Air Sepsis Recent Fever Within 48 Hours Sepsis Action Taken by Nursing 08/29/19 22:02 08/29/19 22:10 08/29/19 22:20 Temperature Temperature Source Pulse Rate 79 73 74 Pulse Rate [Finger] Pulse Rate from SpO2 Sensor 73 Respiratory Rate 21 21 20 Respiratory Effort / Characteristics Respiratory Depth Blood Pressure 107/75 Blood Pressure [Right Arm] Blood Pressure Mean 100 Blood Pressure Mean [Right Arm] Blood Pressure Position Pulse Oximetry 97 Oxygen Delivery Method Room Air Room Air Room Air Sepsis Recent Fever Within 48 Hours Sepsis Action Taken by Nursing 08/29/19 22:30 11/18/19 22:31 Temperature Temperature Source Pulse Rate 71 69 Pulse Rate [Finger] 70 Pulse Rate from SpO2 Sensor Respiratory Rate 20 22 Respiratory Effort / Characteristics Respiratory Depth Blood Pressure 110/52 L Blood Pressure [Right Arm] 110/52 L Blood Pressure Mean 71 Blood Pressure Mean [Right Arm] 71 Blood Pressure Position Pulse Oximetry Oxygen Delivery Method Room Air Room Air Sepsis Recent Fever Within 48 Hours Sepsis Action Taken by Nursing Laboratory Data Result diagrams: 08/29/19 18:55 08/29/19 18:55 Lab Results 08/29/19 08/29/19 08/29/19 Range/Units 18:55 18:55 18:55 WBC 4.94 (4.8-10.8) K/uL RBC 4.48 (4.2-5.4) M/uL Hgb 12.2 (12.0-16.0) g/dL Hct 37.3 (37-47) % MCV 83.3 (80-100) fL MCH 27.2 (25-34) pg MCHC 32.7 (32-36) g/dL RDW Std Deviation 52.6 H (36.4-46.3) fL RDW Coeff of Rosemary 17.0 H (11.5-14.5) % Plt Count 286 (130-400) K/uL MPV 10.7 H (7.4-10.4) fL Immature Gran % (Auto) 1.0 % Neut % (Auto) 82.4 % Lymph % (Auto) 11.3 % [place] % (Auto) 4.5 % Eos % (Auto) 0.4 % Baso % (Auto) 0.4 % Immature Gran # (Auto) 0.05 H (0.00-0.02) K/uL Neut # (Auto) 4.07 (1.4-6.5) K/uL Lymph # (Auto) 0.56 L (1.2-3.4) K/uL [place] # (Auto) 0.22 (0.11-0.59) K/uL Eos # (Auto) 0.02 (0-0.5) K/uL Baso # (Auto) 0.02 (0-0.2) K/uL Sodium 134 L (136-145) mmol/L Potassium 4.0 (3.5-5.1) mmol/L Chloride 102 (98-107) mmol/L Carbon Dioxide 25 (21-32) mmol/L Anion Gap 7.0 (3-11) BUN 26 H (7-18) mg/dl Creatinine 2.22 H (0.6-1.2) mg/dl Est Cr Clr Drug Dosing 42.8 ml/min Est GFR ( Amer) 29.0 Est GFR (Non-Af Amer) 25.0 BUN/Creatinine Ratio 11.8 (10-20) Glucose 121 H (70-99) mg/dl Lactate 1.4 (0.4-2.0) mmol/L Calcium 9.8 (8.5-10.1) mg/dl Total Bilirubin 0.7 (0.2-1) mg/dl AST 29 (15-37) U/L ALT 37 (12-78) U/L Alkaline Phosphatase 122 H (45-117) U/L Total Protein 7.6 (6.4-8.2) gm/dl Albumin 3.8 (3.4-5.0) gm/dl Globulin 3.8 (2.5-4.0) gm/dl Albumin/Globulin Ratio 1.0 (0.9-2) Lipase 140 (73-393) U/L Urine Color Urine Appearance (Clear) Urine pH (4.5-7.5) Ur Specific [place] (1.000-1.030) Urine Protein (Negative) Urine Glucose (UA) (Negative) Urine Ketones (Negative) Urine Blood (Negative) Urine Nitrite (Negative) Urine Bilirubin (Negative) Urine Urobilinogen (Negative) Ur Leukocyte Esterase (Negative) Urine RBC (0-4) /hpf Urine WBC (0-5) /hpf Ur Epithelial Cells (0-5) /lpf Urine Crystals (None Prsent) Urine Bacteria (Negative) 08/29/19 Range/Units 21:13 WBC (4.8-10.8) K/uL RBC (4.2-5.4) M/uL Hgb (12.0-16.0) g/dL Hct (37-47) % MCV (80-100) fL MCH (25-34) pg MCHC (32-36) g/dL RDW Std Deviation (36.4-46.3) fL RDW Coeff of Rosemary (11.5-14.5) % Plt Count (130-400) K/uL MPV (7.4-10.4) fL Immature Gran % (Auto) % Neut % (Auto) % Lymph % (Auto) % [place] % (Auto) % Eos % (Auto) % Baso % (Auto) % Immature Gran # (Auto) (0.00-0.02) K/uL Neut # (Auto) (1.4-6.5) K/uL Lymph # (Auto) (1.2-3.4) K/uL [place] # (Auto) (0.11-0.59) K/uL Eos # (Auto) (0-0.5) K/uL Baso # (Auto) (0-0.2) K/uL Sodium (136-145) mmol/L Potassium (3.5-5.1) mmol/L Chloride (98-107) mmol/L Carbon Dioxide (21-32) mmol/L Anion Gap (3-11) BUN (7-18) mg/dl Creatinine (0.6-1.2) mg/dl Est Cr Clr Drug Dosing ml/min Est GFR ( Amer) Est GFR (Non-Af Amer) BUN/Creatinine Ratio (10-20) Glucose (70-99) mg/dl Lactate (0.4-2.0) mmol/L Calcium (8.5-10.1) mg/dl Total Bilirubin (0.2-1) mg/dl AST (15-37) U/L ALT (12-78) U/L Alkaline Phosphatase (45-117) U/L Total Protein (6.4-8.2) gm/dl Albumin (3.4-5.0) gm/dl Globulin (2.5-4.0) gm/dl Albumin/Globulin Ratio (0.9-2) Lipase (73-393) U/L Urine Color Yellow Urine Appearance Clear (Clear) Urine pH 5.0 (4.5-7.5) Ur Specific [place] 1.025 (1.000-1.030) Urine Protein 2+ H (Negative) Urine Glucose (UA) Negative (Negative) Urine Ketones Trace H (Negative) Urine Blood Negative (Negative) Urine Nitrite Negative (Negative) Urine Bilirubin Negative (Negative) Urine Urobilinogen Negative (Negative) Ur Leukocyte Esterase Negative (Negative) Urine RBC 10-30 H (0-4) /hpf Urine WBC 10-30 H (0-5) /hpf Ur Epithelial Cells >30 H (0-5) /lpf Urine Crystals Calcium Oxalate A (None Prsent) Urine Bacteria 4+ H (Negative) Administered Medications Discontinued Medications Sodium Chloride (Nss 1000ml) 1,000 mls @ 999 mls/hr IV .Q1H1M ONE Stop: 08/29/19 19:05 Last Admin: 08/29/19 20:10 Dose: Not Given Documented by: [id number] Sodium Chloride (Nss 1000ml) 2,000 mls @ 999 mls/hr IV .Q2H1M ONE Stop: 08/29/19 20:09 Last Infusion: 08/29/19 20:53 Dose: 0 mls/hr Documented by: [id number] Admin: 08/29/19 18:52 Dose: 999 mls/hr Documented by: [id number] Cefepime HCl (Maxipime) 2,000 mg in 20 mls @ 5 mls/min IV NOW STA; Protocol Stop: 08/29/19 18:30 Last Admin: 08/29/19 19:33 Dose: 5 mls/min Documented by: [id number] Ketorolac Tromethamine (Toradol) 15 mg IV NOW STA Stop: 08/29/19 18:06 Last Admin: 08/29/19 18:52 Dose: 15 mg Documented by: [id number] Ondansetron HCl (Zofran) 4 mg IV NOW STA Stop: 08/29/19 18:06 Last Admin: 08/29/19 18:52 Dose: 4 mg Documented by: [id number] Discharge Plan Visit Data Chief Complaint: Illness Stated Complaint: SICK ED Provider: Karine Watkins ED Midlevel Provider: Meagan Amaya Discharge Problem: Sepsis, Acute kidney failure, unspecified, Acute hypotension Patient Disposition: Admitted As Inpatient Prescriptions Prescriptions: No Action sulfamethoxazole-trimethoprim [Bactrim] 400-80 mg tablet 1 tab PO BID Qty: 20 RF: 0 lisinopril 20 mg tablet 20 mg PO DAILY Qty: 30 RF: 0 hydrochlorothiazide 25 mg tablet 25 mg PO DAILY Qty: 30 RF: 0 acetaminophen [Tylenol Extra Strength] 500 mg Tablet 1,000 mg PO Q6H PRN (Reason: Pain) RF: 0
--- NOTE | 2019-08-29 19:04 | XRay Report ---
XR chest 1V portable CLINICAL HISTORY: 48 years-old Female presenting with fever/sepsis workup. TECHNIQUE: Portable upright AP view of the chest was obtained. COMPARISON: 03/2017. FINDINGS: Cardiomediastinal silhouette normal. Minimal left basilar bandlike opacities. No pleural effusion or pneumothorax. Degenerative changes of the thoracic spine. Chronic separation of the right AC joint. U pper abdomen normal. IMPRESSION: 1. Minimal left basilar opacities likely atelectasis or scarring. No convincing evidence of acute ca rdiopulmonary disease. Electronically signed by: Roderick Avery M.D. 08/29/2019 7:03 PM
[2019-08-29 19:08] LABS: Basophils # (auto) 0.02 K/uL (0-0.2); Basophils % (auto) 0.4 %; Eosinophils # (auto) 0.02 K/uL (0-0.5); Eosinophils % (auto) 0.4 %; Hematocrit (blood only) 37.3 % (37-47); Hemoglobin 12.2 g/dL (12.0-16.0); Immature Granulocytes # (auto) 0.05 K/uL (0.00-0.02); Lymphocytes # (auto) 0.56 K/uL (1.2-3.4); Lymphocytes % (auto) 11.3 %; Mean Corpuscular Hemoglobin 27.2 pg (25-34); Mean Corpuscular Hgb Conc 32.7 g/dL (32-36); Mean Corpuscular Volume 83.3 fL (80-100); Mean Platelet Volume 10.7 fL (7.4-10.4); Monocytes # (auto) 0.22 K/uL (0.11-0.59); Monocytes % (auto) 4.5 %; Neutrophils # (auto) 4.07 K/uL (1.4-6.5); Neutrophils % (auto) 82.4 %; Platelet Count 286 K/uL (130-400); RDW Standard Deviation 52.6 fL (36.4-46.3); Red Blood Count 4.48 M/uL (4.2-5.4); White Blood Count 4.94 K/uL (4.8-10.8)
[2019-08-29 19:31] LABS: Albumin Level 3.8 gm/dl (3.4-5.0); BUN Creatinine Ratio 11.8 (10-20); Calcium 9.8 mg/dl (8.5-10.1); Creatinine Clr Calc Pharmacy 42.8 ml/min
[2019-08-29 19:33] LABS: Bilirubin,Total 0.7 mg/dl (0.2-1); Globulin 3.8 gm/dl (2.5-4.0); Total Protein 7.6 gm/dl (6.4-8.2)
--- NOTE | 2019-08-29 20:28 | CT Scan Report ---
CT abd pelvis wo con CLINICAL HISTORY: 48 years-old Female presenting with right flank, RUQ and RLQ pain. TECHNIQUE: Multidetector CT of the abdomen and pelvis was performed without the use of intravenous co ntrast. IV contrast: None. One or more dose lowering techniques were used consistent with the princip les of ALARA (as low as reasonably achievable), including automatic exposure control, mA or kV adjust ment to individual patient size, and/or use of iterative reconstruction. COMPARISON: 08/20/2018. CT DOSE (mGy.cm): The estimated cumulative dose is 1705.85 mGy.cm. FINDINGS: Marketing Intern topogram: Unremarkable. Lung bases: Normal heart size. No pericardial or pleural effusion. Minimal dependent changes likely a telectasis. Liver: Normal morphology. Normal density. Biliary: No gross biliary ductal dilatation allowing for noncontrast technique. Gallbladder surgicall y absent. Pancreas: Normal noncontrast appearance. Spleen: Enlarged measuring 15.1 cm in maximal sagittal dimension. Splenule noted. Adrenal glands: Normal. Kidneys and ureters: Normal. No hydronephrosis. Bladder: Incompletely evaluated secondary to underdistention. Pelvic organs: Normal noncontrast appearance. Bowel: Normal appendix. No bowel obstruction. Peritoneal cavity: No free fluid or intraperitoneal gas. Lymph nodes: No gross lymphadenopathy allowing for noncontrast technique. Vasculature: Atherosclerosis of the normal caliber abdominal aorta. Abdominal wall: Normal. Musculoskeletal: Degenerative changes of the spine. IMPRESSION: 1. Splenomegaly. 2. Allowing for noncontrast technique, otherwise no acute intra-abdominal pathology. Electronically signed by: Roderick Avery M.D. 08/29/2019 8:26 PM
[2019-08-29] MEDS ORDERED: SODIUM CHLORIDE 0.9% 1000ML 1,000 ML IV SCH (21:00)
[2019-08-29 21:59] LABS: Appearance Urine Clear (Clear); Blood Urine Negative (Negative); Color Urine Yellow; Glucose Urine UA Negative (Negative); Ketones Urine Trace (Negative); Leukocyte Esterase Urine Negative (Negative); Nitrite Urine Negative (Negative); Protein Urine 2+ (Negative); Specific Gravity Urine 1.025 (1.000-1.030); Urobilinogen Urine Negative (Negative)
[2019-08-29 22:13] LABS: Bilirubin Urine Negative (Negative); Ictotest Urine Negative (Negative)
[2019-08-29 22:14] LABS: Epithelial Cell Urine >30 /lpf (0-5)
[2019-08-29 22:15] LABS: Bacteria Urine 4+ (Negative)
[2019-08-29] MEDS ORDERED: ONDANSETRON INJ 2 MG/ML 2 ML VIAL IV PRN (23:01)
[2019-08-30 00:22] LABS: Calcium 8.6 mg/dl (8.5-10.1); Creatinine Clr Calc Pharmacy 53.9 ml/min; Est GFR (African American) 38.4; Est GFR (Non-African American) 33.1; Magnesium 2.1 mg/dl (1.8-2.4); Potassium 3.9 mmol/L (3.5-5.1)
[2019-08-30 00:25] LABS: Phosphorus 4.2 mg/dl (2.5-4.9)
[2019-08-30] MEDS: SODIUM CHLORIDE 0.9% 1000ML 1,000 ML IV SCH ×2 (00:25→09:12)
--- NOTE | 2019-08-30 00:37 | History & Physical Report ---
Date of Service August 29, 2019 Assessment & Plan (1) Acute kidney failure, unspecified: Patient with elevated BUN = 26 and creatinine of 2.22 (values increased from 20 and 0.9, respectively, 08/20/2019). She has history of hypertension but no prior history of renal dysfunction. Patient diagnosed with pyelonephritis on 08/20 and has completed 9 days of Bactrim therapy. She is afebrile at present, no leukocytosis, electrolytes within normal range. Urinalysis is a poor specimen with greater than 30 epithelial cells. Also with 2+ protein, trace ketones, RBCs, WBCs, 4+ bacteria and calcium oxalate crystals. Noncontrast CT of the abdomen with no stones or hydronephrosis appreciated.?nephrolithiasis, prerenal azotemia, interstitial nephritis or Bactrim induced kidney injury. Patient also on lisinopril and HCTZ. -Admit to PCU -Check urine creatinine and sodium, urine eosinophils, total CK -Continue normal saline at 125 mL/h -BMP twice daily to monitor renal function and electrolytes -Avoid nephrotoxins. Hold lisinopril and HCTZ. -Renal dosing were needed -Urine straining Present on Admission?: Yes (2) Acute hypotension: Patient hypotensive upon arrival, 74/40. Blood pressure markedly improved with aggressive IV fluids. Now 103/71. Patient is presently afebrile, no leukocytosis, lactate = 1.4. She was given cefepime in the ER. Blood culture sent. Follow culture results Continue IV fluids Cefepime 2 g IV every 12 hours -Hold lisinopril and HCTZ Present on Admission?: Yes (3) Hypertension: As above, patient with acute hypotension upon arrival to the ER. Blood pressure now improved after IV fluids. We will continue to hold antihypertensive agents Closely monitor blood pressure F/E/Nnormal saline at 125 mL/h x 2 L, monitor electrolytes and replete as needed, regular diet as tolerated Prophylaxislow risk for DVT CodeDNR/DNI per discussion with patient. Family at bedside and seems slightly surprised at patient's wishes Dispositionadmit to PCU for close blood pressure monitoring History of Present Illness Chief Complaint: Fever Primary Care Provider: Yves Collins MD Bonnie Munson is a 48-year-old female with history of hypertension presenting with ongoing fever and feeling ill. She was seen in the emergency room on 08/20/2019 with complaint of severe left flank pain, foul-smelling urine and rigors. She was diagnosed with pyelonephritis and was discharged home on a 10-day course of Bactrim. She has taken this medication as prescribed and tomorrow is her last day. She reports that she still feels quite ill, lightheaded and dizziness with walking and "listless". Also with nausea and multiple episodes of nonbloody/nonbilious emesis. She denies abdominal pain or diarrhea. She has had fever to 102 degrees over the last 2 days, relieved with Tylenol. Still with left flank pain although much improved, still with urinary frequency/urgency and some incontinence. She reports passing a very small amount of dark-colored urine today. Otherwise she denies chest pain, palpitations, shortness of breath, cough, wheeze ER course: Cefepime, Toradol, Zofran, normal saline Allergies Allergy/AdvReac Type Severity Reaction Status Date / Time adhesive AdvReac Intermediate SKIN PEELS Unverified 08/29/19 20:48 OFF Home Medications Home Medications Medication Instructions Recorded Confirmed Type hydrochlorothiazide 25 mg PO DAILY #30 tab 08/20/19 08/29/19 Rx lisinopril 20 mg PO DAILY #30 tab 08/20/19 08/29/19 Rx sulfamethoxazole-trimethoprim 1 tab PO BID #20 tab 08/20/19 08/29/19 Rx [Bactrim] acetaminophen [Tylenol Extra 1,000 mg PO Q6H PRN 08/29/19 08/29/19 History Strength] Past Med/Surg History Social History Preferred Language: Norwegian Communication Ability: Effective 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 Other Information That Helps Us Care for You: No Feels Safe at Home: Yes Safety Concerns: Feels Safe At This Time Smoking Status: Unknown if ever smoked Hx Alcohol Use: No Hx Substance Use: No Review of Systems Review of Systems: All systems reviewed & are unremarkable except as noted in HPI & below Physical Exam Physical Exam: General: patient resting comfortably, NAD, non-toxic in appearance, AA&O x 4 Skin: warm, dry, intact, no rashes or lesions HEENT: NC/AT, PERRL, EOMI, anicteric sclera, conjunctiva without injection, external ear normal to inspection and nontender, nares patent, moist mucus membranes, dentition intact, no oropharyngeal lesions, neck supple, trachea midline, no LAD, no thyromegaly, no JVD Heart: +S1/S2, regular, no m/r/g Lungs: equal air entry bilaterally, no rales/rhonchi/wheezes Abd: +BS, soft, NT/ND, no masses/organomegaly/ascites Ext: warm, 2+ pulses in UE/LE bilaterally, no clubbing/cyanosis or edema Neuro: nonfocal, patient AA&O x 4, speech intact, no facial droop, moving all extremities on command with equal strength 5/5 Results & Data Vital Signs (Past 12 Hours) Vital Signs Temp Pulse Pulse Resp BP BP Pulse Ox 08/30/19 00:00 36.6 C 74 18 103/71 99 08/29/19 23:45 37 C 67 17 103/60 100 08/29/19 22:31 69 70 22 110/52 L 110/52 L 08/29/19 22:30 71 20 08/29/19 22:20 74 20 08/29/19 22:10 73 21 08/29/19 22:02 79 21 107/75 97 08/29/19 22:00 73 36 H 96 08/29/19 21:50 73 21 08/29/19 21:40 71 22 08/29/19 21:31 72 19 92/64 L 08/29/19 21:30 72 18 08/29/19 21:20 74 25 H 08/29/19 21:11 98 08/29/19 20:50 70 25 H 98 08/29/19 20:40 71 15 98 08/29/19 20:30 73 19 128/65 97 08/29/19 20:28 73 26 H 144/79 H 99 08/29/19 20:27 70 21 144/79 H 99 08/29/19 20:20 73 29 H 08/29/19 20:11 73 22 08/29/19 19:50 73 24 08/29/19 19:40 88 30 H 08/29/19 19:31 74 23 93/55 L 08/29/19 19:30 77 19 08/29/19 19:20 73 22 08/29/19 19:10 78 21 08/29/19 19:00 76 26 H 97 08/29/19 18:50 78 25 H 96 08/29/19 18:44 78 20 97 08/29/19 18:42 79 21 74/40 L 98 08/29/19 18:40 36.9 C 77 77 21 74/40 L 95 08/29/19 18:30 77 21 97 08/29/19 18:27 79 25 H 97 08/29/19 18:07 77 15 89/51 L 08/29/19 15:22 36.4 C L 106 H 18 77/57 L 99 Laboratory Results Lab Results 08/29/19 08/29/19 08/29/19 Range/Units 18:55 18:55 18:55 WBC 4.94 (4.8-10.8) K/uL RBC 4.48 (4.2-5.4) M/uL Hgb 12.2 (12.0-16.0) g/dL Hct 37.3 (37-47) % MCV 83.3 (80-100) fL MCH 27.2 (25-34) pg MCHC 32.7 (32-36) g/dL RDW Std Deviation 52.6 H (36.4-46.3) fL RDW Coeff of Rosemary 17.0 H (11.5-14.5) % Plt Count 286 (130-400) K/uL MPV 10.7 H (7.4-10.4) fL Immature Gran % (Auto) 1.0 % Neut % (Auto) 82.4 % Lymph % (Auto) 11.3 % [place] % (Auto) 4.5 % Eos % (Auto) 0.4 % Baso % (Auto) 0.4 % Immature Gran # (Auto) 0.05 H (0.00-0.02) K/uL Neut # (Auto) 4.07 (1.4-6.5) K/uL Lymph # (Auto) 0.56 L (1.2-3.4) K/uL [place] # (Auto) 0.22 (0.11-0.59) K/uL Eos # (Auto) 0.02 (0-0.5) K/uL Baso # (Auto) 0.02 (0-0.2) K/uL Sodium 134 L (136-145) mmol/L Potassium 4.0 (3.5-5.1) mmol/L Chloride 102 (98-107) mmol/L Carbon Dioxide 25 (21-32) mmol/L Anion Gap 7.0 (3-11) BUN 26 H (7-18) mg/dl Creatinine 2.22 H (0.6-1.2) mg/dl Est Cr Clr Drug Dosing 42.8 ml/min Est GFR ( Amer) 29.0 Est GFR (Non-Af Amer) 25.0 BUN/Creatinine Ratio 11.8 (10-20) Glucose 121 H (70-99) mg/dl Lactate 1.4 (0.4-2.0) mmol/L Calcium 9.8 (8.5-10.1) mg/dl Phosphorus (2.5-4.9) mg/dl Magnesium (1.8-2.4) mg/dl Total Bilirubin 0.7 (0.2-1) mg/dl AST 29 (15-37) U/L ALT 37 (12-78) U/L Alkaline Phosphatase 122 H (45-117) U/L Total Creatine Kinase (26-192) U/L Total Protein 7.6 (6.4-8.2) gm/dl Albumin 3.8 (3.4-5.0) gm/dl Globulin 3.8 (2.5-4.0) gm/dl Albumin/Globulin Ratio 1.0 (0.9-2) Lipase 140 (73-393) U/L Urine Color Urine Appearance (Clear) Urine pH (4.5-7.5) Ur Specific Spencer (1.000-1.030) Urine Protein (Negative) Urine Glucose (UA) (Negative) Urine Ketones (Negative) Urine Blood (Negative) Urine Nitrite (Negative) Urine Bilirubin (Negative) Urine Urobilinogen (Negative) Ur Leukocyte Esterase (Negative) Urine RBC (0-4) /hpf Urine WBC (0-5) /hpf Ur Epithelial Cells (0-5) /lpf Urine Crystals (None Prsent) Urine Bacteria (Negative) 08/29/19 08/29/19 Range/Units 21:13 23:29 WBC (4.8-10.8) K/uL RBC (4.2-5.4) M/uL Hgb (12.0-16.0) g/dL Hct (37-47) % MCV (80-100) fL MCH (25-34) pg MCHC (32-36) g/dL RDW Std Deviation (36.4-46.3) fL RDW Coeff of Rosemary (11.5-14.5) % Plt Count (130-400) K/uL MPV (7.4-10.4) fL Immature Gran % (Auto) % Neut % (Auto) % Lymph % (Auto) % [place] % (Auto) % Eos % (Auto) % Baso % (Auto) % Immature Gran # (Auto) (0.00-0.02) K/uL Neut # (Auto) (1.4-6.5) K/uL Lymph # (Auto) (1.2-3.4) K/uL [place] # (Auto) (0.11-0.59) K/uL Eos # (Auto) (0-0.5) K/uL Baso # (Auto) (0-0.2) K/uL Sodium 138 (136-145) mmol/L Potassium 3.9 (3.5-5.1) mmol/L Chloride 106 (98-107) mmol/L Carbon Dioxide 26 (21-32) mmol/L Anion Gap 6.0 (3-11) BUN 26 H (7-18) mg/dl Creatinine 1.76 H D (0.6-1.2) mg/dl Est Cr Clr Drug Dosing 53.9 ml/min Est GFR ( Amer) 38.4 Est GFR (Non-Af Amer) 33.1 BUN/Creatinine Ratio 15.0 (10-20) Glucose 99 (70-99) mg/dl Lactate (0.4-2.0) mmol/L Calcium 8.6 (8.5-10.1) mg/dl Phosphorus 4.2 (2.5-4.9) mg/dl Magnesium 2.1 (1.8-2.4) mg/dl Total Bilirubin (0.2-1) mg/dl AST (15-37) U/L ALT (12-78) U/L Alkaline Phosphatase (45-117) U/L Total Creatine Kinase 39 (26-192) U/L Total Protein (6.4-8.2) gm/dl Albumin (3.4-5.0) gm/dl Globulin (2.5-4.0) gm/dl Albumin/Globulin Ratio (0.9-2) Lipase (73-393) U/L Urine Color Yellow Urine Appearance Clear (Clear) Urine pH 5.0 (4.5-7.5) Ur Specific Spencer 1.025 (1.000-1.030) Urine Protein 2+ H (Negative) Urine Glucose (UA) Negative (Negative) Urine Ketones Trace H (Negative) Urine Blood Negative (Negative) Urine Nitrite Negative (Negative) Urine Bilirubin Negative (Negative) Urine Urobilinogen Negative (Negative) Ur Leukocyte Esterase Negative (Negative) Urine RBC 10-30 H (0-4) /hpf Urine WBC 10-30 H (0-5) /hpf Ur Epithelial Cells >30 H (0-5) /lpf Urine Crystals Calcium Oxalate A (None Prsent) Urine Bacteria 4+ H (Negative) Diagnostic Findings XR chest 1V portable CLINICAL HISTORY: 48 years-old Female presenting with fever/sepsis workup. TECHNIQUE: Portable upright AP view of the chest was obtained. COMPARISON: 03/2017. FINDINGS: Cardiomediastinal silhouette normal. Minimal left basilar bandlike opacities. No pleural effusion or pneumothorax. Degenerative changes of the thoracic spine. Chronic separation of the right AC joint. Upper abdomen normal. IMPRESSION: 1. Minimal left basilar opacities likely atelectasis or scarring. No convincing evidence of acute cardiopulmonary disease. Electronically signed by: Roderick Avery M.D. 08/29/2019 7:03 PM Dictated: 08/29/191901 Transcribed: 08/29/191901 CT abd pelvis wo con CLINICAL HISTORY: 48 years-old Female presenting with right flank, RUQ and RLQ pain. TECHNIQUE: Multidetector CT of the abdomen and pelvis was performed without the use of intravenous contrast. IV contrast: None. One or more dose lowering techniques were used consistent with the principles of ALARA (as low as reasonably achievable), including automatic exposure control, mA or kV adjustment to individual patient size, and/or use of iterative reconstruction. COMPARISON: 08/20/2018. CT DOSE (mGy.cm): The estimated cumulative dose is 1705.85 mGy.cm. FINDINGS: Green Feed Attendant topogram: Unremarkable. Lung bases: Normal heart size. No pericardial or pleural effusion. Minimal dependent changes likely atelectasis. Liver: Normal morphology. Normal density. Biliary: No gross biliary ductal dilatation allowing for noncontrast technique. Gallbladder surgically absent. Pancreas: Normal noncontrast appearance. Spleen: Enlarged measuring 15.1 cm in maximal sagittal dimension. Splenule noted. Adrenal glands: Normal. Kidneys and ureters: Normal. No hydronephrosis. Bladder: Incompletely evaluated secondary to underdistention. Pelvic organs: Normal noncontrast appearance. Bowel: Normal appendix. No bowel obstruction. Peritoneal cavity: No free fluid or intraperitoneal gas. Lymph nodes: No gross lymphadenopathy allowing for noncontrast technique. Vasculature: Atherosclerosis of the normal caliber abdominal aorta. Abdominal wall: Normal. Musculoskeletal: Degenerative changes of the spine. IMPRESSION: 1. Splenomegaly. 2. Allowing for noncontrast technique, otherwise no acute intra-abdominal pathology. Electronically signed by: Roderick Avery M.D. 08/29/2019 8:26 PM Dictated: 08/29/192017 Transcribed: 08/29/192017 Code Status & VTE Plan Code Status DNR/DNI per discussion with patient VTE Prophylaxis Plan VTE Prophylaxis will be ordered: Yes PG Care Time/CCT Total # of Minutes Spent Total Time Spent with Patient: Total time spent is greater than 50% in coordination of care (as documented) at patient's floor/unit and/or counseling patient: (1) Acute kidney failure, unspecified Acute renal failure type: unspecified Qualified Code(s): N17.9 - Acute kidney failure, unspecified (2) Hypertension Hypertension type: essential hypertension Qualified Code(s): I10 - Essential (primary) hypertension
[2019-08-30 04:56] LABS: Basophils # (auto) 0.02 K/uL (0-0.2); Basophils % (auto) 0.7 %; Eosinophils # (auto) 0.03 K/uL (0-0.5); Hematocrit (blood only) 33.7 % (37-47); Hemoglobin 10.8 g/dL (12.0-16.0); Immature Granulocytes # (auto) 0.02 K/uL (0.00-0.02); Immature Granulocytes % (auto) 0.7 %; Lymphocytes # (auto) 0.86 K/uL (1.2-3.4); Lymphocytes % (auto) 29.1 %; Mean Corpuscular Hemoglobin 26.5 pg (25-34); Mean Corpuscular Volume 82.8 fL (80-100); Mean Platelet Volume 10.5 fL (7.4-10.4); Monocytes # (auto) 0.21 K/uL (0.11-0.59); Monocytes % (auto) 7.1 %; Neutrophils # (auto) 1.82 K/uL (1.4-6.5); Neutrophils % (auto) 61.4 %; Platelet Count 258 K/uL (130-400); RDW Coefficient of Variation 17.1 % (11.5-14.5); RDW Standard Deviation 52.6 fL (36.4-46.3); Red Blood Count 4.07 M/uL (4.2-5.4); White Blood Count 2.96 K/uL (4.8-10.8)
[2019-08-30] MEDS: HEPARIN SOD 5,000 UNIT/0.5 ML VIAL SQ SCH ×3 (05:26→21:38)
[2019-08-30] MEDS: NICOTINE 21 MG/24 HR TDSY TD SCH ×2 (09:23→10:59)
--- NOTE | 2019-08-30 09:25 | Hospitalist Progress Note ---
Date of Service August 30, 2019 Assessment & Plan (1) Acute kidney failure, unspecified: Continue monitoring renal function and avoid nephrotoxic agents.Hold lisinopril and HCTZ while patient has acute kidney injury. -Continue admit to PCU and downgrade as patient is improving -Check urine creatinine and sodium, urine eosinophils, total CK -Continue normal saline at 125 mL/h -BMP twice daily to monitor renal function and electrolytes -Avoid nephrotoxins. Hold lisinopril and HCTZ. -Renal dosing were needed -Urine straining (2) Acute hypotension: Patient hypotensive upon arrival, 74/40. Blood pressure markedly improved with aggressive IV fluids. Now 103/71. Patient is presently afebrile, no leukocytosis, lactate = 1.4. She was given cefepime in the ER. Blood culture sent. Follow culture results Continue IV fluids Cefepime 2 g IV every 12 hours -Hold lisinopril and HCTZ (3) Hypertension: As above, patient with acute hypotension upon arrival to the ER. Blood pressure now improved after IV fluids. We will continue to hold antihypertensive agents Closely monitor blood pressure F/E/Nnormal saline at 125 mL/h x 2 L, monitor electrolytes and replete as needed, regular diet as tolerated Prophylaxislow risk for DVT CodeDNR/DNI per discussion with patient. Family at bedside and seems slightly surprised at patient's wishes Dispositionadmit to PCU for close blood pressure monitoring Subjective Patient seen and examined at the bedside. She is slowly improving. She is not hypotensive anymore her heart rate is within normal limits and her acute kidney of kidney failure is improving as well. Patient tolerates food very well. Patient denies fever, chills, chest pain, shortness of breath, abdominal pain, frequency, urgency. Patient is afebrile. Review of Systems Review of Systems: All systems reviewed & are unremarkable except as noted in HPI & below Physical Exam Constitutional: WD/WN, vitals as above well developed and + morbidly obese Eyes: PERRL, conjunctivae normal, anicteric sclerae ENMT: external ear and nose normal, oropharynx normal Neck: trachea midline, no thyromegaly Respiratory: normal respiratory effort, lungs clear to auscultation Cardiovascular: RRR, no murmur, no edema Gastrointestinal (Abdomen): normal bowel sounds, soft, nontender, no hepatosplenomegaly Musculoskeletal: no cyanosis or clubbing, extremities motor strength 5/5 Skin: no rashes, warm and dry Neurologic: patellar DTR's 2+ bilat, sensation intact Psychiatric: A+Ox3, euthymic affect Lymphatic: no cervical or axillary lymphadenopathy Results & Data Vital Signs (Past 12 Hours) Vital Signs Temp Pulse Pulse Resp BP BP Pulse Ox 08/30/19 07:34 37.4 C 97 H 31 H 112/57 L 08/30/19 04:00 37 C 78 20 122/73 97 08/30/19 00:00 36.6 C 74 18 103/71 99 08/29/19 23:45 37 C 67 17 103/60 100 08/29/19 22:31 69 70 22 110/52 L 110/52 L 08/29/19 22:30 71 20 08/29/19 22:20 74 20 08/29/19 22:10 73 21 08/29/19 22:02 79 21 107/75 97 08/29/19 22:00 73 36 H 96 08/29/19 21:50 73 21 08/29/19 21:40 71 22 08/29/19 21:31 72 19 92/64 L 08/29/19 21:30 72 18 PG Care Time/CCT Total # of Minutes Spent Total Time Spent with Patient: Total time spent is greater than 50% in coordination of care (as documented) at patient's floor/unit and/or counseling patient: (1) Acute kidney failure, unspecified Acute renal failure type: unspecified Qualified Code(s): N17.9 - Acute kidney failure, unspecified (2) Hypertension Hypertension type: essential hypertension Qualified Code(s): I10 - Essential (primary) hypertension
[2019-08-30] MEDS: ACETAMINOPHEN 500 MG TAB PO PRN ×2 (10:59→23:37)
[2019-08-30 12:19] LABS: BUN Creatinine Ratio 16.2 (10-20); Calcium 9.1 mg/dl (8.5-10.1); Creatinine Clr Calc Pharmacy 87.9 ml/min; Est GFR (African American) 69.3; Est GFR (Non-African American) 59.8; Potassium 3.9 mmol/L (3.5-5.1)
[2019-08-30] MEDS: CEFEPIME 2,000 MG in SYRINGE 7.5 ML IV SCH (13:24)
[2019-08-30] MEDS ORDERED: CEFEPIME 2,000 MG in SYRINGE 7.5 ML IV SCH (18:00)
[2019-08-31] MEDS: CEFEPIME 2,000 MG in SYRINGE 7.5 ML IV SCH (01:58)
[2019-08-31] MEDS: HEPARIN SOD 5,000 UNIT/0.5 ML VIAL SQ SCH (06:05)
[2019-08-31] MEDS: NICOTINE 21 MG/24 HR TDSY TD SCH (08:22)
[2019-08-31] MEDS: ACETAMINOPHEN 500 MG TAB PO PRN (08:22)
--- NOTE | 2019-08-31 12:04 | Hospitalist Progress Note ---
Date of Service August 31, 2019 Assessment & Plan (1) Acute kidney failure, unspecified: Patient is eager to go home. Her blood pressure is well controlled. We recommended her to stop lisinopril and hydrochlorothiazide due to acute kidney injury and start amlodipine 5 mg p.o. daily. She would need to follow-up with her primary care physician within 7 days. She was also advised to monitor her blood pressure especially before taking blood pressure medicine and check the blood pressure in the morning and make a log. She needs to present her blood pressure log to her PCP to be able to monitor her blood pressure better. Patient was also informed about splenomegaly. And recommended to repeat CT scan in 6 to 8 weeks to determine if it has been resolved. (2) Acute hypotension: Resolved, patient is eager to go home. She recommended to continue cefdinir 300 mg p.o. twice daily for 10 days. If cultures come back positive especially blood cultures would continue cefdinir for 2 weeks prophylactically for endocarditis. Patient needs to follow-up with her PCP within 7 days. The discharge summary will be transferred to her PCP and request to follow-up on urine and blood culture. (3) Hypertension: Continue monitoring. CodeDNR/DNI per discussion with patient. Family at bedside and seems slightly surprised at patient's wishes Dispositionhome Subjective Patient seen and examined at the bedside. Patient requested to be discharged home. She says she feels much better. Her labs are improved. Patient tolerates food very well. Patient denies fever, chills, chest pain, shortness of breath, abdominal pain, frequency, urgency. Patient is afebrile. Review of Systems Review of Systems: All systems reviewed & are unremarkable except as noted in HPI & below Physical Exam Constitutional: WD/WN, vitals as above well developed and + morbidly obese Eyes: PERRL, conjunctivae normal, anicteric sclerae ENMT: external ear and nose normal, oropharynx normal Neck: trachea midline, no thyromegaly Respiratory: normal respiratory effort, lungs clear to auscultation Cardiovascular: RRR, no murmur, no edema Gastrointestinal (Abdomen): normal bowel sounds, soft, nontender, no hepatosplenomegaly Musculoskeletal: no cyanosis or clubbing, extremities motor strength 5/5 Skin: no rashes, warm and dry Neurologic: patellar DTR's 2+ bilat, sensation intact Psychiatric: A+Ox3, euthymic affect Lymphatic: no cervical or axillary lymphadenopathy Results & Data Vital Signs (Past 12 Hours) Vital Signs Temp Pulse Resp BP Pulse Ox 08/31/19 07:13 36.7 C 67 20 101/66 96 PG Care Time/CCT Total # of Minutes Spent Total Time Spent with Patient: Total time spent is greater than 50% in coordination of care (as documented) at patient's floor/unit and/or counseling patient: (1) Acute kidney failure, unspecified Acute renal failure type: unspecified Qualified Code(s): N17.9 - Acute kidney failure, unspecified (2) Hypertension Hypertension type: essential hypertension Qualified Code(s): I10 - Essential (primary) hypertension
--- NOTE | 2019-08-31 12:14 | Discharge Summary ---
Date of Service August 31, 2019 Admission HPI Per Admitting Provider Bonnie Munson is a 48-year-old female with history of hypertension presenting with ongoing fever and feeling ill. She was seen in the emergency room on 08/20/2019 with complaint of severe left flank pain, foul-smelling urine and rigors. She was diagnosed with pyelonephritis and was discharged home on a 10-day course of Bactrim. She has taken this medication as prescribed and tomorrow is her last day. She reports that she still feels quite ill, lightheaded and dizziness with walking and "listless". Also with nausea and multiple episodes of nonbloody/nonbilious emesis. She denies abdominal pain or diarrhea. She has had fever to 102 degrees over the last 2 days, relieved with Tylenol. Still with left flank pain although much improved, still with urinary frequency/urgency and some incontinence. She reports passing a very small amount of dark-colored urine today. Otherwise she denies chest pain, palpitations, shortness of breath, cough, wheeze ER course: Cefepime, Toradol, Zofran, normal saline Principal Diagnosis none Discharge Exam Constitutional WD/WN, vitals as above well developed and + morbidly obese Eyes PERRL, conjunctivae normal, anicteric sclerae ENMT external ear and nose normal, oropharynx normal Neck trachea midline, no thyromegaly Respiratory normal respiratory effort, lungs clear to auscultation Cardiovascular RRR, no murmur, no edema Gastrointestinal (Abdomen) normal bowel sounds, soft, nontender, no hepatosplenomegaly Musculoskeletal no cyanosis or clubbing, extremities motor strength 5/5 Skin no rashes, warm and dry Neurologic patellar DTR's 2+ bilat, sensation intact Psychiatric A+Ox3, euthymic affect Lymphatic no cervical or axillary lymphadenopathy Discharge Data Allergies Allergy/AdvReac Type Severity Reaction Status Date / Time adhesive AdvReac Intermediate SKIN PEELS Unverified 08/29/19 20:48 OFF Consultations 08/29/19 20:49 ED Decision to Admit Stat Ordered Studies 08/29/19 19:38 CT abd pelvis wo con Stat Hospital Course (1) Acute kidney failure, unspecified: Patient is eager to go home. Her blood pressure is well controlled. We recommended her to stop lisinopril and hydrochlorothiazide due to acute kidney injury and start amlodipine 5 mg p.o. daily. She would need to follow-up with her primary care physician within 7 days. She was also advised to monitor her blood pressure especially before taking blood pressure medicine and check the blood pressure in the morning and make a log. She needs to present her blood pressure log to her PCP to be able to monitor her blood pressure better. Patient was also informed about splenomegaly. And recommended to repeat CT scan in 6 to 8 weeks to determine if it has been resolved. (2) Acute hypotension: Resolved, patient is eager to go home. She recommended to continue cefdinir 300 mg p.o. twice daily for 10 days. If cultures come back positive especially blood cultures would continue cefdinir for 2 weeks prophylactically for endocarditis. Patient needs to follow-up with her PCP within 7 days. The discharge summary will be transferred to her PCP and request to follow-up on urine and blood culture. (3) Hypertension: Continue monitoring. CodeDNR/DNI per discussion with patient. Family at bedside and seems slightly surprised at patient's wishes Dispositionhome Total Time Total Time Spent Total Time Spent (In Minutes): over 30 min Discharge Plan Discharge Items Patient Disposition: Home - Self-Care Reason For Visit: HYPOTENSION Discharge Diagnosis: acute kidney injury, hypotension Condition on Discharge: Good Health Concerns: Please check your blood pressure before taking blood pressure medicine Amlodipine. If your Blood Pressure is less then systolic less then 120/80 HOLD your blood pressure medicine and discuss with your PCP. Activity: As commented below Lifting: Gradually increase as tolerated Non-emergency contact: Primary Care Provider Call non-emergency contact if: you have any medication questions, your symptoms worsen, your pain is not controlled, your pain is worsening, your pain is unusual for you, your pain is concerning for you, you have a fever, your temperature is above 101 and your temperature is above 101.5 Follow-up/Referrals: Evans Collins MD [Primary Care Provider] - Diet: Heart Healthy and Low Sodium (2gm) Addtl Attending Provider Instructions: Due to your recent acute kidney injury we recommend you to be off of HCTZ and lisinopril. Instead we will start amlodipine 5 mg PO daily that will not affect your kidneys.Continue antibiotic for 7 days for complicated urinary tract infection.Cefdinir 300 mg BID. Take probiotic with it. Pending Studies at Discharge: Yes Studies:: Follow up blood and urine cultures with your PCP. Stand-Alone Forms: [facility], Smoking Cessation Medications and DC Order Prescriptions: New amlodipine 5 mg tablet 5 mg PO DAILY Qty: 30 RF: 0 cefdinir 300 mg capsule 300 mg PO BID 10 Days Qty: 20 RF: 0 Probiotic 15 billion cell capsule, sprinkle 1 cap PO DAILY Qty: 30 RF: 0 Discontinued sulfamethoxazole-trimethoprim [Bactrim] 400-80 mg tablet 1 tab PO BID Qty: 20 RF: 0 lisinopril 20 mg tablet 20 mg PO DAILY Qty: 30 RF: 0 hydrochlorothiazide 25 mg tablet 25 mg PO DAILY Qty: 30 RF: 0 acetaminophen [Tylenol Extra Strength] 500 mg Tablet 1,000 mg PO Q6H PRN (Reason: Pain) RF: 0 Discharge Orders: Discharge Order (Routine); Ordered 08/31/19 Ordered By: Sher Holguin Admission Data Admit Date/Time: 08/29/19 22:12 Attending Provider: Sher Holguin Admit Provider: Marina Abdul Primary Care Provider: Evans Collins Other Providers: Marina Abdul
== END 2019-08-31 12:30 | disposition home or self-care (01) | DRG 684 ==
LOC: ED 15:01 → 1E 22:12 → SUATTDRO 22:12 → 1E 22:45 → 4W 08-30 12:41

== ENCOUNTER 2021-02-20 09:31 | Observation (INO) ==
--- NOTE | 2021-01-08 16:43 | PAT Medication Instructions ---
Medication Instructions Date of Service January 08, 2021 Home Medications Medication Instructions Recorded methylprednisolone 4 mg tablets in 4 mg PO UD #1 packet 01/04/21 a dose pack methylprednisolone 4 mg tablets in 4 mg PO USEASDIRECTD #21 tab 01/04/21 a dose pack acetaminophen 1,000 mg PO Q6H PRN methylprednisolone 4 mg tablets in a dose pack 4 mg PO UD methylprednisolone 4 mg tablets in a dose pack 4 mg PO USEASDIRECTD Continue as directed methylprednisolone 4 mg tablets in a dose pack 4 mg PO UD methylprednisolone 4 mg tablets in a dose pack 4 mg PO USEASDIRECTD Take morning of surgery With a small sip of water, OTHERWISE NOTHING TO EAT OR DRINK AFTER MIDNIGHT: acetaminophen 1,000 mg PO Q6H PRN (okay to take up to 4 hours prior to surgery if needed) Take evening before surgery acetaminophen 1,000 mg PO Q6H PRN (if needed) Other Notes If you have any questions please call us at [phone] or [phone] or [phone] or [phone]
--- NOTE | 2021-01-09 09:00 | Anesthesiology Consultation ---
Date of Service January 09, 2021 Assessment & Plan (1) Encounter for pre-operative examination: Chart Review Chart Review: Pending: Refer to Additional Notes / Consult section (pending chest CT and preop Covid testing results ) and Patient seen in Pre Admission Testing -Did write note to PCP in [facility] re: abnormal CXR results and if chest CT scan needs done prior to surgery- PCP is scheduling chest CT prior to surgery. Pt has no issues reading, writing or signing her own consent forms. Per PAT appt on 01/09/21, pt denies any recent travel. Pt does social distances and masks in public. No known Covid positive contacts or Covid related symptoms. Pt denies any known Covid infection in the past 90 days. Preop Covid testing scheduled 01/17/21= will await results. Educated on importance of self quarantining, social distancing and wearing mask in public both for the patient and household contacts. Teaching & Discussion Pre-Anesthesia Teaching/Discussion Notes: Instructed NPO after midnight before surgery,except medications with 15 cc of water. Medication instructions provided according to the PAT guidelines. History Surgery Operation Date: 01/23/21 09:05 Proposed Procedures p Right Total Knee Arthroplasty - Efren Abdul MD Height/Weight Height: 5 ft 6 in Weight: 136.3 kg Allergies Allergy/AdvReac Type Severity Reaction Status Date / Time adhesive AdvReac Mild Skin Verified 01/07/21 13:04 peeling Medications Home Medications Medication Instructions Recorded Confirmed Last Taken acetaminophen 1,000 mg PO Q6H PRN 01/04/21 01/04/21 Unknown methylprednisolone 4 mg tablets in 4 mg PO UD #1 packet 01/04/21 01/04/21 Unknown a dose pack methylprednisolone 4 mg tablets in 4 mg PO USEASDIRECTD #21 tab 01/04/21 01/04/21 Unknown a dose pack Past Medical History Medical History Anxiety and depression Stable Asthma Well controlled and stable COPD (chronic obstructive pulmonary disease) No inhalers needed Degenerative disc disease Insomnia Lumbar transverse process fracture NO SURGICAL TX NEEDED- FOUND ON CT SCAN OF LUMBAR SPINE- 11/23/20= "There is an acute appearing fracture through the base of the left transverse process of L5." PCP monitoring Obstructive sleep apnea NO DEVICE Osteoarthritis Post traumatic stress disorder Restless leg syndrome Sciatica of right side Vertigo No recent issues Exercise / Class Metabolic Activity III < 4 Walking/Shop/Light housework (no chest pain or SOB with flat surface ambulation ) Past Family History Family History Grandfather (Paternal) Myocardial infarction Mother COPD (chronic obstructive pulmonary disease) Hypertension Stroke Father Coronary heart disease Sister Diabetes Hypertension Family history of diabetes mellitus Other No family history of adverse response to anesthesia Denies family history of Ovarian cancer Prostate cancer Breast cancer Colorectal cancer Past Surgical History Surgical History History of esophagogastroduodenoscopy (EGD) History of left knee replacement History of open reduction and internal fixation (ORIF) procedure LEFT ANKLE (HARDWARE INTACT) History of parathyroid surgery History of tooth extraction S/P subtotal parathyroidectomy REMOVED D/T CALCIUM OVER PRODUCTION Tubal ligation status Past Anesthesia History No Hx of Anesthesia Complications and No Family Hx of Anesthesia Complications History of PONV No Hx of PONV and No Hx of Motion Sickness Social History Smoking Status: Current every day smoker tobacco type: cigarettes Smoking cigarettes per day: 20 CIG DAILY Do You Dip or Chew Tobacco: No Hx Alcohol Use: Yes alcohol intake frequency: holidays/special occasions only Hx Substance Use: No substance use type: does not use Review of Systems Chronic wheezing- unchanges/stable Patient denies chest pain, shortness of breath, dyspnea on exertion, reflux, cough, palpitations. No hx of seizures, stroke, PA. No hx of blood clots or blood transfusions Physical Exam Vital Signs VITALS BP 119/78 P 86 TEMP 98.0 SP02 97% RESP 16 Constitutional no acute distress ENMT Mouth: no TMJ clicking Thyromental Distance: > or= 3.5 Finger Breadths (3.5) Mallampati Class: I Full dentures top and bottom Neck + thick neck; neck extension not limited Respiratory normal respiratory effort; no respiratory distress Auscultation: lungs clear to auscultation bilaterally; no wheezes Cardiovascular Rate/Rhythm: regular rate and regular rhythm Heart Sounds: no murmur Vessels: no carotid bruit Musculoskeletal Spine: no pain with cervical ROM Extremities: extremities normal to inspection Psychiatric Orientation: alert Testing Laboratory Results 01/09/21 09:32 01/09/21 09:32 PT 10.0 Seconds (9.0-12.0) 01/09/21 09:32 INR 1.0 (0.9-1.1) 01/09/21 09:32 APTT 27.1 Seconds (21.0-31.0) 01/09/21 09:32 Blood Type O Positive 01/09/21 09:32 Antibody Screen NEGATIVE 01/09/21 09:32 Electrocardiogram Date: 01/09/21 Findings: + NSR @ (70bpm) Normal EKG per cardio. Chest X-Ray Date: 01/09/21 Findings: + NAD A 2.7 cm predominantly linear density within the left upper lobe. This favors scarring from the previous pneumonia. However, this should be confirmed with a follow-up chest CT.
[2021-01-09 10:06] LABS: Basophils # (auto) 0.04 K/uL (0-0.2); Basophils % (auto) 0.5 %; Eosinophils # (auto) 0.11 K/uL (0-0.5); Eosinophils % (auto) 1.4 %; Hematocrit (blood only) 41.4 % (37-47); Hemoglobin 13.7 g/dL (12.0-16.0); Immature Granulocytes # (auto) 0.02 K/uL (0.00-0.02); Immature Granulocytes % (auto) 0.3 %; Lymphocytes # (auto) 1.84 K/uL (1.2-3.4); Lymphocytes % (auto) 23.4 %; Mean Corpuscular Hgb Conc 33.1 g/dL (32-36); Mean Corpuscular Volume 87.5 fL (80-100); Mean Platelet Volume 10.4 fL (7.4-10.4); Monocytes # (auto) 0.53 K/uL (0.11-0.59); Monocytes % (auto) 6.7 %; Neutrophils # (auto) 5.33 K/uL (1.4-6.5); Neutrophils % (auto) 67.7 %; Platelet Count 425 K/uL (130-400); RDW Coefficient of Variation 15.1 % (11.5-14.5); RDW Standard Deviation 48.8 fL (36.4-46.3); Red Blood Count 4.73 M/uL (4.2-5.4); White Blood Count 7.87 K/uL (4.8-10.8)
[2021-01-09 10:14] LABS: BUN Creatinine Ratio 24.7 (10-20); Creatinine Clr Calc Pharmacy 131.8 ml/min; Est GFR (African American) 113.5; Est GFR (Non-African American) 97.9
--- NOTE | 2021-01-09 10:28 | XRay Report ---
XR chest Pre-admission PA/Lat HISTORY: Preop. COMPARISON: Chest 01/05/2020. FINDINGS: There is a small focal left upper lobe density measuring approximately 2.7 cm. This appears to represent a linear density on the lateral view and therefore favors scarring. This was at the sit e of the previously described pneumonia. No pneumothorax. Stable calcified granuloma within the right upper lobe. No pleural effusions. The heart is normal in size. IMPRESSION: 1. No acute process within the chest. 2. A 2.7 cm predominantly linear density within the left upper lobe. This favors scarring from the pr evious pneumonia. However, this should be confirmed with a follow-up chest CT. ACT 112: Positive. There are findings on this exam that require communication between the performing entity and the patient following Patient Test Result Information Act ([place] Act 112) guidelines. Electronically signed by: Anthony Bird M.D. 01/09/2021 10:26 AM
[2021-01-09 10:42] LABS: Partial Thromboplastin Time 27.1 Seconds (21.0-31.0)
--- NOTE | 2021-01-09 14:42 | Electrocardiogram Report ---
Test Reason : Blood Pressure : / mmHG Vent. Rate : 070 BPM Atrial Rate : 070 BPM P-R Int : 134 ms QRS Dur : 086 ms QT Int : 398 ms P-R-T Axes : 034 -24 016 degrees QTc Int : 429 ms Normal sinus rhythm Normal ECG When compared with ECG of 05-JAN-2020 08:59, T wave amplitude has increased in Lateral leads Confirmed by Andrew Meadows ([id number]) on 01/09/2021 2:41:58 PM Referred By: Efren Abdul Confirmed By:Andrew Meadows
--- NOTE | 2021-02-14 21:27 | History and Physical Report ---
DATE OF ADMISSION: 02/20/2021 CHIEF COMPLAINT: Right knee pain and discomfort. HISTORY OF PRESENT ILLNESS: The patient is a 50-year-old female well known to me from previous left knee replacement done about 3 years ago. She has a long history of right knee pain and discomfort, describes it has gotten worse over time. She has been through extensive conservative treatment provided elsewhere. She has had multiple shots, which provided some very temporary relief. She has become more debilitated over time. She has trouble walking more than a couple blocks. She is now currently using a cane. Pain is global. She has nighttime pain. She would really like to have this fixed. Of note, she has a history of left knee replacement done 3 years ago and done well with this. She also has some back and buttock pain consistent with some sciatica. PAST MEDICAL HISTORY: Significant for, 1. A 25-bqyy-yloh smoking. 2. Obesity, BMI of 49. 3. COPD. 4. Sleep apnea. 5. Low back pain/sciatica. PAST SURGICAL HISTORY: Includes, 1. Left knee replacement done on 04/06/2018. 2. Left ankle surgery. ALLERGIES: ADHESIVES. CURRENT MEDICATIONS: Include tramadol and occasional Percocet, gabapentin, cyclobenzaprine. SOCIAL HISTORY: Significant for a 50-year-old female. She does not drink. She does smoke. FAMILY HISTORY: Noncontributory. REVIEW OF SYSTEMS: Negative for diabetes, neurologic problem, vascular problems or bleeding disorders. No chest pain or shortness of breath. No history of DVT or PE. PHYSICAL EXAMINATION: GENERAL: Shows a pleasant, middle-aged female. Looks older than her stated age. HEENT: Benign. NECK: Supple, no lymphadenopathy. LUNGS: Clear to auscultation. HEART: Regular rate and rhythm. ABDOMEN: Soft, nontender, nondistended. EXTREMITIES: Grossly neurovascularly intact except as follows: Examination of the right knee reveals the patient walks with a markedly antalgic gait. She keeps her foot a little externally rotated and walks with a stiff knee gait. She limps on this side. Small knee effusion. Large soft tissue envelope. Range of motion is 10-120. No instability. Examination of the hip reveals pain with hip motion. X-RAYS: X-rays of the right knee were reviewed. It shows advanced right knee DJD. She has got complete loss of her lateral joint space. She has got osteophytes primarily laterally. Left knee replacement looks to be in good position. ASSESSMENT: A 50-year-old female 3 years out from a left knee replacement with several comorbidities, most significantly obesity. She has failed conservative treatment and would like to have her right knee replaced. PLAN: We will take her to the operating room and do right total knee replacement. The risks and benefits of total knee replacement were explained to the patient including but not limited to DVT, PE, , infection, neurological injury, vascular injury, bleeding problem, pain, limited range of motion, stiffness, failure to relieve her symptoms, incomplete relief of symptoms, need for further surgery in the future, fracture, leg length inequality, nerve palsy, etc. The patient understands and desires to proceed. Informed consent was obtained. We will likely use some Toradol postoperatively. Hopefully, this will help her back and sciatica-type symptoms as well. We did give her a Medrol Dosepak in the past. As far as discharge plans, she is planning to be discharged to home and do outpatient therapy.
[~2021-02-20 09:31] MED LIST changes: -ACET325C PO; +ACETAMINOPHEN 500 MG TAB PO SCH; +BUPIVACAINE 0.25% 30 ML VIAL ONE; +BUPIVACAINE 0.5 % 5 MG/1 ML PF 10ML VIAL ONE; +BUPIVACAINE LIPOSOME/PF 266 MG, BUPIVACAINE/EPINEPHRINE 50 ML, SODIUM CHLORIDE 0.9% 30 ... INFIL SCH; -BUPRTAB PO; +FAMOTIDINE 20 MG TAB PO SCH; -GABA-113 PO; +GABAPENTIN 900 MG DOSE PO SCH; -HYDR25TA4 PO; -IBUP-1050 PO; +LR 500ML BOLUS, THEN 15ML/HR IV SCH; +LR 60ML/HR IV SCH; +METOCLOPRAMIDE HCL 10 MG TABLET PO SCH; -PARO1TAB29 PO; +Scopolamine 1 MG TDSY TD SCH; +Scopolamine CHECK PATCH PLACEMENT SCH; +TRANEXAMIC ACID / 0.7% NACL 1,000 MG/100 ML BAG IV SCH; +TRANEXAMIC ACID 1,000 MG **IV Intra-op IV SCH; +ceFAZolin 2000MG 2,000 MG/15 ML SYR IV SCH
--- NOTE | 2021-02-20 10:29 | History & Physical Bridge Note ---
Date of Service February 20, 2021 History & Physical Bridge Note I have examined the patient, reviewed the History & Physical and in the interval since the performance of the History & Physical I have noted the following changes of clinical significance: no changes noted
[2021-02-20] MEDS ORDERED: LIDOCAINE HCL 2% 2 ML VIAL/AMP(20MG/ML) INFIL ONE ×3 (10:54→13:12)
[2021-02-20] MEDS ORDERED: fentaNYL citrate 100 MCG/2 ML VIAL ONE ×2 (10:54→11:02)
[2021-02-20] MEDS ORDERED: MIDAZOLAM HCL 1 MG/ML 2ML VIAL ONE ×2 (10:54→11:02)
[2021-02-20] MEDS ORDERED: PROPOFOL IV EMULSION 10 MG/ML 20 ML VIAL IV ONE ×5 (10:54→13:38)
[2021-02-20] MEDS ORDERED: PHENYLEPHRINE 100MCG/ML 5ML SYR ONE ×2 (11:01→12:34)
[2021-02-20] MEDS ORDERED: ePHEDrine sulfate 50 MG/ML SYR ONE (11:01)
[2021-02-20] MEDS ORDERED: ONDANSETRON INJ 2 MG/ML 2 ML VIAL IV PRN ×2 (11:24→15:53)
[2021-02-20] MEDS ORDERED: fentaNYL citrate 100 MCG/2 ML VIAL IV PRN (11:24)
[2021-02-20] MEDS ORDERED: ePHEDrine sulfate 50 MG/ML AMP IV PRN (11:24)
[2021-02-20] MEDS ORDERED: ATROPINE SULFATE 0.1 MG/ML 10ML SYR IV PRN (11:24)
[2021-02-20] MEDS ORDERED: BUPIVACAINE 0.25% 30 ML VIAL ONE (12:02)
[2021-02-20] MEDS ORDERED: BUPIVACAINE LIPOSOME 1.3% 266 MG/20 ML VIAL ONE (12:02)
[2021-02-20] MEDS ORDERED: SODIUM CHLORIDE 0.9% PF 50 ML VIAL ONE (12:02)
[2021-02-20] MEDS ORDERED: EPINEPHrine INJ 1 MG/ML AMP ONE (12:03)
[2021-02-20] MEDS ORDERED: ePHEDrine sulfate 50 MG/ML AMP ONE (12:34)
--- NOTE | 2021-02-20 14:03 | Post Operative Brief Note ---
PG Immediate Post Op with CF Date of Surgery February 20, 2021 Pre & Post Diagnosis Operation Date: 02/20/21 11:55 Pre-Op Diagnosis: Right Knee Advanced Degenerative Joint Disease Post-Op Diagnosis: Right Knee Advanced Degenerative Joint Disease I identified the patient and participated in the time-out.: Yes Procedure Operation Date: 02/20/21 11:55 Actual Procedures p Right Total Knee Arthroplasty(Right) - Efren Abdul MD Surgeon Efren Abdul MD [employer] LOUIE Ware Estimated Blood Loss 50 Findings Consistent with Post-Op Diagnosis Fluids 1500 cc Specimens Specimen Description: A. Right Knee Bone and Tissue Drains Moore Catheter Anesthesia Type Spinal MAC Complications none Disposition Accompanied Patient To Recovery: No Disposition: Recovery Room
--- NOTE | 2021-02-20 14:19 | Anesthesiology Progress Note ---
Date of Service February 20, 2021 Anesthesia Post Procedure Vital Signs Vital Signs: Temp Pulse Resp BP BP Pulse Ox 02/20/21 14:15 75 16 104/64 98 02/20/21 14:08 36.2 C L 89 16 113/66 99 02/20/21 09:49 36.6 C 20 153/89 H 98 Transfer of Care Handoff Completed per policy Notes Mental Status: alert / awake / arousable and participated in evaluation Patient Amnestic to Procedure: Yes Nausea / Vomiting: adequately controlled Pain: adequately controlled Airway Patency, RR, SpO2: stable & adequate BP & HR: stable & adequate Hydration State: stable & adequate Neuraxial Anesthesia: was administered and sensory block is resolving Anesthetic Complications: no major complications apparent and Pt Satisfied with anesthetic care
--- NOTE | 2021-02-20 14:37 | XRay Report ---
XR knee RT 1 or 2V routine CLINICAL HISTORY: Surgical Post Op COMPARISON: 01/29/2021 DISCUSSION: There are postsurgical changes of a total right knee arthroplasty and patellar resurfacin g. The femoral tibial components appear well seated. There are overlying skin susy. There is gas w ithin the soft tissues consistent with recent surgery. IMPRESSION: Postsurgical changes of a total right knee arthroplasty. ACT 112: Negative or not required by law. Electronically signed by: Victoriano Ugarte M.D. 02/20/2021 2:35 PM
[2021-02-20] MEDS ORDERED: MAGNESIUM HYDROXIDE SUSP 30 ML UDC PO PRN (15:53)
[2021-02-20] MEDS ORDERED: ALUMINUM/MAGNESIUM SUSP 30 ML UDC PO PRN (15:53)
[2021-02-20] MEDS ORDERED: METOCLOPRAMIDE HCL INJ 5 MG/ML 2 ML VIAL IV PRN (15:53)
[2021-02-20] MEDS ORDERED: HYDROmorphone INJ 0.5 MG/0.5 ML SYR IV PRN (15:53)
[2021-02-20] MEDS ORDERED: diphenhydrAMINE Capsule 25 MG CAP PO PRN (15:53)
[2021-02-20] MEDS ORDERED: NALOXONE HCL 0.4 MG/1 ML VIAL/CARP IV PRN (15:53)
[2021-02-20] MEDS ORDERED: bisacodyL 10 MG SUPP PR PRN (15:53)
[2021-02-20] MEDS: SODIUM CHLORIDE 0.9% 1000ML 1,000 ML IV SCH ×2 (16:35→22:43)
[2021-02-20] MEDS: Scopolamine CHECK PATCH PLACEMENT SCH ×2 (16:36→22:43)
[2021-02-20] MEDS: KETOROLAC 30 MG/ML VIAL IV SCH ×2 (17:05→22:43)
--- NOTE | 2021-02-20 17:48 | Operative Report ---
Post Operative Report Pre & Post Diagnosis Operation Date: 02/20/21 11:55 Pre-Op Diagnosis: Right Knee Advanced Degenerative Joint Disease Post-Op Diagnosis: Right Knee Advanced Degenerative Joint Disease I identified the patient and participated in the time-out.: Yes Procedure Operation Date: 02/20/21 11:55 Actual Procedures p Right Total Knee Arthroplasty(Right) - Efren Abdul MD Surgeon Efren Abdul MD Tire Room Supervisor LOUIE Ware Estimated Blood Loss 50 Findings Consistent with Post-Op Diagnosis Operative findings revealed advanced right knee DJD. She had grade 4 [id number] disease in all 3 compartments most severe laterally with eburnation of the lateral femoral condyle and lateral tibial plateau. She had a moderate- sized joint effusion. She had a valgus deformity to her knee which is fixed. Fluids 1500 cc Specimens Right knee sent for pathology. Drains None. Complications none Disposition Accompanied Patient To Recovery: No Disposition: Recovery Room Indications Patient is a 50-year-old female whose had a long history of knee problems. She underwent a left knee replacement 3 years ago. She is done well from this. Over the years she developed increased pain discomfort deformity in her right knee pes failed all conservative measures. X-rays revealed severe lateral compartment DJD. She elected proceed with surgical treatment. Of note, patient is morbidly obese with BMI 50. Description of Procedure Operative implants consist of: 1. Biomet Vanguard size 65 right posterior stabilized femoral component. 2. Biomet size 71 tibial tray. 3. 10 mm posterior stabilized polyethylene insert. 4. 31 x 8 all polypatella. The patient was taken to the operating, identified, and placed on the operating table supine position but all contractors were properly padded. IV antibiotics tried by anesthesia team. A spinal anesthetic and abductor canal block had been applied in the holding area. Moore catheter was placed in sterile fashion. A right thigh turn was then placed in the right lower extremity was then prepped and draped in usual sterile fashion. Right leg was elevated exsanguinated with use of an Esmarch and the tourniquet was placed at 3 and 50 mmHg. An anterior approach to the right knee was then performed through longitudinal incision centered over the patella. Sharp lysis cut through subcutaneous tissue down the extensor mechanism. A medial parapatellar arthrotomy incision was made. Subperiosteal dissection was carried out medially. The fat pad was resected beneath patella tendon. Lateral patellofemoral ligament was released. The patella subluxated laterally and the knee was flexed. The osteophytes were taken off distal femur. The ACL and PCL were then released and distal femur the tibia subluxated anteriorly. External tibial alignment jig was then placed in the interface the tibia and adjusted 12 mm medially. Proximal tibial cut was made to take about 3 to 4 mm of off the medial side. The tibia was then sized to a size 71. Attention drawn the femur. The distal femur during the sharp drop with intramedullary canal was suction. A right 5 degree valgus cutting guide was placed but distal femoral cutting block was pinned in place and adjusted and eventually we took an extra 5 mm off the distal femur as the pulmonary cuts that did need to get down to the base of the notch. The knee was brought out in extension. I did do some releasing the IT band in order to equalize the extension gap. Great care was taken throughout the procedure protect the peroneal nerve at all times. The knee was flexed. The knee was in sized to a size 65. The AP cutting block was pinned parallel to the epicondylar axis which was 4 degrees of external rotation. Anterior cut, anterior chamfer, posterior cut, posterior chamfer cuts were made. The box cutting guide was placed in just slight lateral and the box cut was made. The knee was flexed. The remnants of the medial lateral menisci were excised. The osteophytes were taken off the posterior aspect the femur. A trial femoral c omponent was placed. The tibial tray was pinned in maximum external rotation and the drill and stem punch were used to create defect in proximal tibia for the tibial tray. Knee was then trialed and the 10 mm insert fit most appropriately. Attention drawn the patella. The patella was cleaned of all soft tissues. Patella thickness measured 20 mm in thickness was cut down to 12. Sized to a size 31 patella. The lug holes were drilled for 31 patella. The lateral osteophyte is moved. Patella button was placed. Knee was taken through range of motion patella tracked nicely with no thumbs test. Attention drawn to place the permanent components. All trial components were removed. A bone plug was placed in the distal femur limit blood loss put a double batch [place] G cement was mixed. A Biomxzoopsguard size 65 right posterior stabilized femoral component, size 71 tibial tray, 10 mm posterior stabilized polyethylene insert, 31 x 8 all polypatella then cemented in place. Knee was brought out in full extension until cement hardened. Final cement check was then performed. Pericapsular tissues were injected with total 100 cc of combination of 20 cc of Exparel, 30 cc of normal saline, 50 cc of quarter percent Marcaine with epinephrine. Patient did receive 1 g tranexamic acid per the turn was then let down for turn time 57 minutes. Hemostasis assured use electrocautery. Extensor mechanism closed with combination 1 PDS suture #1 Vicryl suture in [id number] fashion. Extensor mechanism checked found to be intact the subcutaneous tissue was then closed with 2 Dexon suture in a buried interrupted fashion skin was closed skin susy. Leg was then cleaned dried and sterile dressing applied Xeroform, 4 x 4's, sterile cast padding, Moses bandage were applied. Patient then transferred to the recovery room in stable condition. Patient tolerated the procedure well and there were no complications. Nathanael Ware, my physician dam tender assistant, was present for the entire procedure. His assistance was essential and required for appropriate patient positioning, prepping and draping, surgical exposure, performing the technical details of the operation, placement the implants, closure of the wound, and placement of the sterile bandage. I attest to the content of the Intraoperative Record and any orders documented therein. Any exceptions are noted below.
[2021-02-20] MEDS ORDERED: TRANEXAMIC ACID / 0.7% NACL 1,000 MG/100 ML BAG IV SCH (20:00)
[2021-02-20] MEDS: TAPENTADOL HCL ER 50 MG TABCR PO SCH (20:29)
[2021-02-20] MEDS: DOCUSATE SODIUM 100 MG CAP PO SCH (20:30)
[2021-02-20] MEDS: ASPIRIN 81 MG ECTAB PO SCH (20:30)
[2021-02-20] MEDS: ACETAMINOPHEN 500 MG TAB PO SCH (20:30)
[2021-02-20] MEDS: ceFAZolin 2000MG 2,000 MG/15 ML SYR IV SCH (20:30)
[2021-02-20] MEDS: GABAPENTIN 100 MG CAP PO SCH (20:30)
[2021-02-20] MEDS ORDERED: SENNA 8.6 MG TAB PO SCH (21:00)
[2021-02-21] MEDS: ceFAZolin 2000MG 2,000 MG/15 ML SYR IV SCH (05:00)
[2021-02-21] MEDS: ACETAMINOPHEN 500 MG TAB PO SCH (05:00)
[2021-02-21] MEDS: KETOROLAC 30 MG/ML VIAL IV SCH ×2 (05:00→14:11)
[2021-02-21 06:40] LABS: Hematocrit (blood only) 32.9 % (37-47); Hemoglobin 10.7 g/dL (12.0-16.0); Mean Corpuscular Hemoglobin 28.1 pg (25-34); Mean Corpuscular Hgb Conc 32.5 g/dL (32-36); Mean Corpuscular Volume 86.4 fL (80-100); Mean Platelet Volume 10.2 fL (7.4-10.4); Platelet Count 210 K/uL (130-400); RDW Coefficient of Variation 16.2 % (11.5-14.5); RDW Standard Deviation 51.1 fL (36.4-46.3); Red Blood Count 3.81 M/uL (4.2-5.4); White Blood Count 4.84 K/uL (4.8-10.8)
[2021-02-21 07:13] LABS: BUN Creatinine Ratio 20.4 (10-20); Calcium 8.4 mg/dl (8.5-10.1); Creatinine Clr Calc Pharmacy 128.5 ml/min; Est GFR (Non-African American) 93.1 ml/min; Potassium 4.5 mmol/L (3.5-5.1)
[2021-02-21] MEDS: oxyCODONE HCL IR 5 MG TAB (IMMEDIATE RELEASE) PO PRN ×2 (07:38→14:32)
[2021-02-21] MEDS: GABAPENTIN 100 MG CAP PO SCH (07:39)
[2021-02-21] MEDS: ASPIRIN 81 MG ECTAB PO SCH (07:39)
[2021-02-21] MEDS: TAPENTADOL HCL ER 50 MG TABCR PO SCH (07:39)
[2021-02-21] MEDS: DOCUSATE SODIUM 100 MG CAP PO SCH (07:40)
[2021-02-21] MEDS: Scopolamine CHECK PATCH PLACEMENT SCH (07:42)
--- NOTE | 2021-02-21 07:59 | Progress Notes ---
DATE: 02/21/2021 SUBJECTIVE: A 50-year-old female postop day 1 from right knee replacement. She is doing pretty well. A moderate amount of pain, but doing okay with pain meds. No chest pain or shortness of breath. Not feeling dizzy or lightheaded. OBJECTIVE: VITAL SIGNS: Temperature 36.8. Vital signs stable. GENERAL: Shows a pleasant, middle-aged female. She is sitting up at her bedside. Looks pretty comfortable. EXTREMITIES: Examination of the right leg reveals the dressing to be clean, dry and intact. Knee alignment looks good. She can dorsiflex and plantarflex her foot appropriately. She can do a straight leg raise. She is neurologically intact. LABORATORY DATA: Hemoglobin 10.7. Hematocrit 32.9. Electrolytes are stable. ASSESSMENT: A 50-year-old female postop day 1 from a right knee replacement, doing pretty well. Pain is controlled. She is neurologically intact. PLAN: 1. DVT prophylaxis including thigh-high TEDs, SCDs, and aspirin twice a day. 2. PT/OT. Weight bear as tolerated. Right total knee protocol. 3. Pain control, doing okay with current pain regimen. 4. Disposition: Plan to discharge to home with some home health likely later today if does okay in therapy.
[2021-02-21] MEDS ORDERED: dexAMETHasone 4 MG TAB PO SCH (08:00)
[2021-02-21] MEDS ORDERED: MULTIVITAMIN TAB PO SCH (09:00)
== END 2021-02-21 15:19 | disposition home health service (06) ==
LOC: 3E 09:31 → ASU 09:31